=== PATIENT | female | born 1990 | race Caucasian/White ===

== ENCOUNTER → 2017-01-03 | Day surgery (SDC) | payer OTHER ==
[~2017-01-03] VITALS: Ht 160 cm; Wt 70.5 kg
[~2017-01-03] MED LIST: ADVIN50/60 INH; ALBU18002 INH; ALBU1AER9 INH; ASPI81TA28 PO; BUSP5TAB59 PO; CLR10 PO; CYM/30 PO; CYM/60 PO; DIPH25CA65 PO; DOCU-94 PO; FOLI1TAB7 PO; GABA-112 PO; LANS30CA12 PO; LEVE500T13 PO; LEVO1INJ13 PO; LIDOCAINE HCL 2% 2 ML VIAL (20MG/ML) ONE; LRS10 PO; MELATAB2 PO; METO25TA56 PO; MIDAZOLAM HCL 1 MG/ML 2ML VIAL ONE; MONT1TAB3 PO; NAPR-1169 PO; NICO21DI4 TD; NORE0.352 PO; NRN100 PO; ONDA4TAB46 PO; POLY335019 PO; POTA-331 PO; POTA10CA28 PO; PRLSR20 PO; PROM25TA9 PO; PROPOFOL IV EMULSION 10 MG/ML 20 ML VIAL IV ONE; QUET1TAB30 PO; QUET1TAB34 PO; SODIUM CHLORIDE 0.9% 500ML 500 ML IV ONE; SRQ25 PO; TAMS0.4C38 PO; THM50 PO; TIZA1CAP3 PO; VNTHFA/IN INH; ZNF/4 PO; ZNTUNK PO; compound cream
[2017-01-03 09:37] VITALS: Ht 160 cm; Wt 70.5 kg
[2017-01-03 10:23] LABS: PREG INTERNAL NEGATIVE QC NEG CLEAR BACKGROUND; PREG INTERNAL POSITIVE QC POS CONTROL LINE
--- NOTE | 2017-01-03 10:45 | Endo History and Physical ---
History & Physical Date of Service: Jan 03, 2017. Chief Complaint: ABDOMINAL PAIN, EPIGASTRIC PAIN Referring Physician: DR CHAMBERLAIN History of Present Illness Epigastric pain. Past Medical History Asthma, Anxiety, Seizure Disorder, Valve Replacement, CVA/TIA, Depression Past Surgical History Hx Cardiac Surgery: Yes Hx Internal Defibrillator: No Hx Pacemaker: No Hx Abdominal Surgery: No Hx of Implantable Prosthesis: No Hx Cancer Surgery: No Hx Thoracic Surgery: No Hx Orthopedic: No Hx Urinary Tract Surgery: No Family History None Social History Smoking Status: Current Every Day Smoker Hx Substance Use: Yes Hx Alcohol Use: Yes (DAILY- RUM APPOX "10 SHOTS" A DAY) Allergies Coded Allergies: No Known Allergies (Unverified , NONE, 01/03/17) Current Medications Reported Home Medications Medications Dose Route/Sig Max Daily Dose Days Date Category Dose Instructions [compound cream] 10/05/15 Reported Neurontin (Gabapentin) 100 Mg Cap 100 Mg PO TID 10/05/15 Reported Aspirin Ec (Aspirin) 81 Mg Tab 81 Mg PO DAILY 08/31/15 Reported Levothyroxine Sodium 100 Mcg Inj 100 Mcg PO DAILY 08/31/15 Reported Flomax (Tamsulosin Hcl) 0.4 Mg Cap 0.4 Mg PO DAILY 08/31/15 Reported Miralax (Polyethylene Glycol 3350) 1 Pow Pow 17 Gm PO DAILY 08/31/15 Reported Naprosyn (Naproxen) 500 Mg Tab 500 Mg PO BID 08/31/15 Reported Lopressor (Metoprolol Tartrate) 25 Mg Tab 25 Mg PO BID 08/31/15 Reported Buspirone Hcl 5 Mg Tab 5 Mg PO TID 03/05/14 Reported Proair Hfa (Albuterol Sulfate) 108 Mcg/ Aer 2 Puff INH TID 03/05/14 Reported Klor-Con M10 (Potassium Chloride Microencaps) 10 Meq Tab 10 Meq PO DAILY 03/05/14 Reported Quetiapine Fumarate 25 Mg Tab 25 Mg PO HS 03/05/14 Reported Advair Diskus 500/50 60 Dose (Fluticasone Prop/Salmeterol) 1 Ea Aerp 1 Puff INH BID 03/05/14 Reported Zofran (Ondansetron HCl) 4 Mg Tab 4 Mg PO Q8 PRN 03/05/14 Reported Singulair (Montelukast Sodium) 10 Mg Tab 10 Mg PO HS 03/05/14 Reported Tizanidine HCl (Tizanidine) 4 Mg Tab 4 Mg PO TID 03/05/14 Reported Seroquel (Quetiapine Fumarate) 100 Mg Tab 100 Mg PO UD 03/05/14 Reported Tizanidine Hcl 6 Mg Cap 6 Mg PO UD 03/05/14 Reported Baclofen 10 Mg Tab 10 Mg PO UD 03/05/14 Reported Cymbalta (Duloxetine HCl) 60 Mg Cap 60 Mg PO 03/05/14 Reported Prevacid (Lansoprazole) 30 Mg Capcr 30 Mg PO DAILY 03/05/14 Reported Zantac Unkown Dose (Ranitidine HCl) Tab 1 Tablet PO QPM 04/26/11 Reported TAKE IN THE AFTERNOON. Vital Signs Weight (Kilograms): 70.45 Height (Feet): 5 Height (Inches): 3 Date Time Temp Pulse Resp B/P (MAP) Pulse Ox O2 Delivery O2 Flow Rate FiO2 01/03/17 10:21 36.0 103 16 110/74 (86) 99 Room Air Physical Exam General Appearance: WD/WN, no apparent distress Respiratory/Chest: Auscultation: breath sounds normal, no wheezing Cardiovascular: Heart Auscultation: RRR, no murmurs Assessment and Plan EGD today
--- NOTE | 2017-01-03 11:13 | GI REPORT ---
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 Medicines: Propofol per Anesthesia Complications: No immediate complications. Estimated blood loss: None. Estimated Blood Loss: Estimated blood loss: none. Procedure: Pre-Anesthesia Assessment: - Prior to the procedure, a History and Physical was performed, and patient medications, allergies and sensitivities were reviewed. The patient's tolerance of previous anesthesia was reviewed. - ASA Grade Assessment: III - A patient with severe systemic disease. After obtaining informed consent, the endoscope was passed under direct vision. Throughout the procedure, the patient's blood pressure, pulse, and oxygen saturations were monitored continuously. The scope was introduced through the mouth, and advanced to the third part of the duodenum. Small bowel enteroscopy was deemed necessary. The upper GI endoscopy was accomplished with ease. The patient tolerated the procedure well. Findings: Esophagitis with no bleeding was found in the entire esophagus. Cells for cytology were obtained by brushing. The Z-line was regular and was found 36 cm from the incisors. A small hiatus hernia was present. The entire examined stomach was normal. Biopsies were taken with a cold forceps for Helicobacter pylori testing. The examined duodenum was normal. Biopsies for histology were taken with a cold forceps for evaluation of celiac disease. Impression: - Candidiasis esophagitis. Cells for cytology obtained. - Z-line regular, 36 cm from the incisors. - Small hiatus hernia. - Normal stomach. Biopsied. - Normal examined duodenum. Biopsied. Recommendation: - Await pathology results. - Diflucan (fluconazole) 100 mg PO daily for 3 weeks. - Discharge patient to home (with escort). Trevor Michael M.D. Trevor Michael MD 01/03/2017 11:12:58 AM This report has been signed electronically. Note Initiated On: 01/03/2017 10:36 AM I attest to the content of the Intraoperative Record and orders documented therein, exceptions below
--- NOTE | 2017-01-03 11:14 | Discharge Instructions ---
Endoscopy Patient Instructions Date / Procedure(s) Performed Jan 03, 2017. EGD Allergy Information Coded Allergies: No Known Allergies (Unverified , NONE, 01/03/17) Discharge Date / Findings Jan 03, 2017. Shana esophagitis, biopsies pending Medication Instructions Stopped Medication(s): aspirin 81mg last dose 01/02/17 Restart Stopped Medication(s): Restart all medications today Diflucan 100 mg for three weeks Provider Instructions Activity Restrictions - No exercising or heavy lifting for 24 hours. - Do not drink alcohol the day of the procedure. - Do not drive a car or operate machinery until the day after the procedure. - Do not make any important decisions or sign important papers in 24 hours after the procedure. Following Day: - Return to full activity which may include returning to work/school. Diet Start your diet with liquids and light foods (jello, soup, juice, toast). Then eat your usual diet if not nauseated. Treatment For Common After Affects For mild abdominal pain, bloating, or excessive gas: - Rest - Eat lightly - Lie on right side Follow-Up Information Follow-up with DR CHAMBERLAIN as scheduled Anesthesia Information What You Should Know You have had a procedure that required some medicine to reduce anxiety and discomfort. This treatment is called moderate sedation. After receiving the treatment, you may be sleepy, but you will be able to breathe on your own. The effects of the treatment may last for several hours. Follow these instructions along with Activity/Diet recommendations noted above: * Do NOT do anything where dizziness or clumsiness would be dangerous. * Rest quietly at home today, then you can be up and about tomorrow. * Have a responsible person stay with you the rest of today. * You may have had an I.V. today. If so, you may take the dressing off later today. Recommendations Call your doctor if: * Trouble breathing * Continuous vomiting for more than 24 hours * Temperature above 101 degrees * Severe abdominal pain or bloating * Pain not relieved by pain medicine ordered * There is increased drainage or redness from any incision * A large amount of rectal bleeding greater than 2-3 tablespoons. (If you had a polyp/s removed or have hemorrhoids, a small amount of blood - from the rectum is to be expected.) * You have any unanswered questions or concerns. IN THE EVENT OF A SERIOUS EMERGENCY, GO TO THE NEAREST EMERGENCY ROOM Your discharge instructions were prepared by provider Trevor Michael. Patient Instructions Signature Page Alla Verdin Patient (or Guardian) Signature/Date: I have read and understand the instructions given to me by my caregivers. Caregiver/RN/Doctor Signature/Date: The above-named patient and/or guardian has received patient instructions on this date. + Original Patient Signature Page (only) stays with chart. Please make copy for patient.
--- NOTE | 2017-01-03 11:38 | Anesthesiology Progress Note ---
Anesthesia Post Op Note Date & Time Jan 03, 2017 at 11:38 Vital Signs Pain Intensity: 0 Vital Signs Past 12 Hours Date Time Temp Pulse Resp B/P (MAP) Pulse Ox O2 Delivery O2 Flow Rate FiO2 01/03/17 11:22 100 20 115/80 (92) 99 Room Air 01/03/17 11:07 105 16 93/72 (79) 98 Room Air 01/03/17 10:21 36.0 103 16 110/74 (86) 99 Room Air Notes Mental Status: alert / awake / arousable, participated in evaluation Pt Amnestic to Procedure: Yes Nausea / Vomiting: adequately controlled Pain: adequately controlled Airway Patency, RR, SpO2: stable & adequate BP & HR: stable & adequate Hydration State: stable & adequate Anesthetic Complications: no major complications apparent
[2017-01-03 11:44] VITALS: BP 115/80; PULSE 96; O2SAT 99
== END | disposition home or self-care (01) ==
LOC: C.GI 09:18
PROVIDERS: ATTEND Internal Medicine Gastroenterology
DX: B37.81 Candidal esophagitis (principal); K29.80 Duodenitis without bleeding; K29.50 Unspecified chronic gastritis without bleeding; K44.9 Diaphragmatic hernia without obstruction or gangrene; G40.909 Epilepsy, unspecified, not intractable, without status epilepticus; J45.909 Unspecified asthma, uncomplicated; F41.9 Anxiety disorder, unspecified; F32.9 Major depressive disorder, single episode, unspecified; F17.210 Nicotine dependence, cigarettes, uncomplicated; Z86.73 Personal history of transient ischemic attack (TIA), and cerebral infarction without residual deficits; Z79.52 Long term (current) use of systemic steroids; Z79.899 Other long term (current) drug therapy

== ENCOUNTER 2017-01-08 14:30 | Inpatient (IN) | payer OTHER ==
[~2017-01-08] VITALS: Ht 160 cm; Wt 76.1 kg
[~2017-01-08 14:30] MED LIST changes: -ALBU18002 INH; -CLR10 PO; -CYM/30 PO; -DIPH25CA65 PO; -DOCU-94 PO; -FOLI1TAB7 PO; -LEVE500T13 PO; -LIDOCAINE HCL 2% 2 ML VIAL (20MG/ML) ONE; -MELATAB2 PO; -MIDAZOLAM HCL 1 MG/ML 2ML VIAL ONE; -NICO21DI4 TD; -NORE0.352 PO; -NRN100 PO; -POTA10CA28 PO; -PRLSR20 PO; -PROM25TA9 PO; -PROPOFOL IV EMULSION 10 MG/ML 20 ML VIAL IV ONE; -QUET1TAB30 PO; -SODIUM CHLORIDE 0.9% 500ML 500 ML IV ONE; -THM50 PO; -VNTHFA/IN INH
[2017-01-08] MEDS ORDERED: SODIUM CHLORIDE 0.9% 1000ML 1,000 ML IV STA ×2 (16:12→16:33)
--- NOTE | 2017-01-08 16:33 | EMERGENCY ROOM VISIT NOTE ---
History Report prepared by Deandre: Magdaleno Land Under the Supervision of: Dr. Faustino Philippe M.D. First contact with patient: 14:51 Chief Complaint: FALL Stated Complaint: HAD STROKE 3YR AGO,BEEN FALLING History of Present Illness The patient is a 26 year old white female with a past medical history of asthma , anxiety, seizure disorder, heart valve infection, valve replacement, CVA/TIA that affected the right side, depression, and recent endoscopy who presents to the ED with a cc of multiple falls beginning a few months ago. Positive left sided weakness, numbness, and pain, left hand numbness, slight cough, alcohol, and tobacco use. Negative vomiting, head pain, congestion. The patient has not been eating well or having BMs. She had an endoscopy a week and a half ago, and the symptoms have gotten worse since then. She takes seizure medications, though she does not take Coumadin, Eliquis, or Xarelto. Source of History: patient Onset: a few months ago Position: other (global) Quality: other (falls) Associated Symptoms: + weakness, + numbness, No headache Review of Systems See HPI for pertinent positives and negatives. A total of ten systems were reviewed and were otherwise negative. Past Medical & Surgical Medical Problems: (1) Anxiety (2) Asthma Family History Unknown Social History Smoking Status: Current Every Day Smoker Alcohol Use: occasionally Drug Use: cocaine, heroin, marijuana Marital Status: single Housing Status: lives with roommate Occupation Status: unemployed Current/Historical Medications Scheduled Albuterol Hfa (Ventolin Hfa), 2-4 PUFFS INH Q6H Aspirin (Aspirin Ec), 81 MG PO DAILY Baclofen (Baclofen), 10 MG PO UD Buspirone Hcl (Buspirone Hcl), 15 MG PO TID Duloxetine HCl (Cymbalta), 60 MG PO HS Duloxetine HCl (Cymbalta), 1 CAP PO QAM Fluticasone Prop/Salmeterol (Advair Diskus 500/50 60 Dose), 1 PUFF INH BID Folic Acid (Folvite), 1 MG PO DAILY Levetiracetam (Keppra), 500 MG PO BID Levothyroxine Sodium (Levothyroxine Sodium), 100 MCG PO DAILY Loratadine (Claritin), 10 MG PO DAILY Melatonin (Melatonin Maximum Strengt), 1 TAB PO HS Metoprolol Tartrate (Lopressor) (Lopressor), 25 MG PO BID Montelukast Sodium (Singulair), 10 MG PO HS Naproxen (Naprosyn), 500 MG PO BID Norethindrone (Contraceptive) (Addie-Be), 1 TAB PO DAILY Omeprazole (Prilosec), 20 MG PO DAILY Polyethylene Glycol 3350 (Miralax), 17 GM PO DAILY Potassium Chloride (Micro-K Ext Rel), 20 MEQ PO BID Quetiapine Fumarate (Seroquel), 25 MG PO HS Tamsulosin Hcl (Flomax), 0.4 MG PO DAILY Scheduled PRN Albuterol Sulfate (Proair Respiclick), 2 PUFFS INH Q6H PRN for Shortness of Breath Diphenhydramine Hcl (Benadryl Allergy), 1 CAP PO HS PRN for Itching Docusate Sodium (Colace), 1 CAP PO BID PRN for Constipation Ondansetron Hcl (Zofran), 4 MG PO Q8 PRN for Nausea Promethazine Hcl (Phenergan), 25 MG PO Q4H PRN for Nausea Miscellaneous Medications [compound cream] Allergies Coded Allergies: No Known Allergies (Unverified , NONE, 01/08/17) Physical Exam Vital Signs Date Time Temp Pulse Resp B/P (MAP) Pulse Ox O2 Delivery O2 Flow Rate FiO2 01/08/17 21:23 107 01/08/17 21:03 104/75 01/08/17 21:00 106 17 98 01/08/17 20:00 109 99 01/08/17 19:30 106 100 01/08/17 18:30 105 99 01/08/17 18:23 108 16 100/66 98 Room Air 01/08/17 16:46 108 01/08/17 14:38 36.7 127 18 99/70 98 Room Air Physical Exam GENERAL: Awake, alert, well-appearing, NAD HENT: Exotropic left eye. Normocephalic, atraumatic. EYES: Normal conjunctiva. Sclera non-icteric. NECK: Supple. No nuchal rigidity. FROM. RESPIRATORY: CTAB, no rhonchi, wheezing, crackles CARDIAC: RRR, no MRG ABDOMEN: Soft, NTND, BS+ MSK: Ecchymosis over the anterior and lateral aspect of the left knee. NVI distally. No chest wall TTP, no LE edema NEURO: PERRLA and EOMI. Exotropic left eye. Mild right sided deficits of the face and RUE. 4/5 strength in the RLE. 5/5 strength in the LUE and LLE. Good finger to nose. No pronator drift. No sensory deficit. GCS 15, CN 2-12 intact, moves all 4s on command SKIN: Pallor. No rash or jaundice noted. Medical Decision & Procedures ER Provider Diagnostic Interpretation: Radiology results as stated below per my review and radiologist interpretation: LEFT KNEE 3 VIEWS HISTORY: Left knee pain, bruising COMPARISON: None. FINDINGS: There is no fracture or dislocation. Soft tissues are unremarkable. No radiopaque foreign bodies. No knee effusion. IMPRESSION: No fractures. Electronically signed by: Jarocho Mcguire M.D. 01/08/2017 4:40 PM Dictated Date/Time: 01/08/2017 4:[address] NONCONTRAST CT DOSE: 537.48 mGy.cm HISTORY: prior septic emboli w/ right-sided sided deficits, recent falls TECHNIQUE: Multiaxial CT images of the head were performed without the use of intravenous contrast. Automated exposure control was utilized for this study. A dose lowering technique was utilized adhering to the principles of ALARA. Comparison: Head CT 06/09/2014. Findings: The paranasal sinuses and mastoid air cells are clear. The calvarium and skull base are intact. Subtle malacia within the left MCA territory consistent with an old infarct. This is progressed compared to the prior study. However, there is no acute infarct. No mass, hematoma, or midline shift. No change in the hyperdense left MCA consistent with old thrombus. Impression: Old left MCA territory infarct is again noted. No acute intracranial abnormality. Electronically signed by: Jarocho Mcguire M.D. 01/08/2017 5:51 PM Dictated Date/Time: 01/08/2017 5:46 PM CHEST ONE VIEW PORTABLE CLINICAL HISTORY: pain dyspnea COMPARISON STUDY: 03/05/2014 FINDINGS: Interval median sternotomy. No evidence for cardiac enlargement. Slight interstitial prominence left base. Right lung is clear. No evidence pneumothorax. IMPRESSION: Slight interstitial prominence left base, possibly inflammatory.. Otherwise negative study post median sternotomy. The above report was generated using voice recognition software. It may contain grammatical, syntax or spelling errors. Electronically signed by: Dino Lopez M.D. 01/08/2017 4:43 PM Dictated Date/Time: 01/08/2017 4:42 PM Laboratory Results 01/08/17 15:25 Red Blood Count 3.74, Mean Corpuscular Volume 103.2, Mean Corpuscular Hemoglobin 34.0, Mean Corpuscular Hemoglobin Concent 32.9, Mean Platelet Volume 9.6, Neutrophils (%) (Auto) 62.8, Lymphocytes (%) (Auto) 22.6, Monocytes (%) ( Auto) 11.0, Eosinophils (%) (Auto) 2.1, Basophils (%) (Auto) 0.5, Neutrophils # (Auto) 3.61, Lymphocytes # (Auto) 1.30, Monocytes # (Auto) 0.63, Eosinophils # ( Auto) 0.12, Basophils # (Auto) 0.03 01/08/17 15:25 Test 01/08/17 15:25 01/08/17 17:08 01/08/17 19:11 01/08/17 19:30 White Blood Count 5.75 K/uL (4.8-10.8) Red Blood Count 3.74 M/uL (4.2-5.4) Hemoglobin 12.7 g/dL (12.0-16.0) Hematocrit 38.6 % (37-47) Mean Corpuscular Volume 103.2 fL (80-100) Mean Corpuscular Hemoglobin 34.0 pg (25-34) Mean Corpuscular Hemoglobin Concent 32.9 g/dl (32-36) Platelet Count 281 K/uL (130-400) Mean Platelet Volume 9.6 fL (7.4-10.4) Neutrophils (%) (Auto) 62.8 % Lymphocytes (%) (Auto) 22.6 % Monocytes (%) (Auto) 11.0 % Eosinophils (%) (Auto) 2.1 % Basophils (%) (Auto) 0.5 % Neutrophils # (Auto) 3.61 K/uL (1.4-6.5) Lymphocytes # (Auto) 1.30 K/uL (1.2-3.4) Monocytes # (Auto) 0.63 K/uL (0.11-0.59) Eosinophils # (Auto) 0.12 K/uL (0-0.5) Basophils # (Auto) 0.03 K/uL (0-0.2) RDW Standard Deviation 55.3 fL (36.4-46.3) RDW Coefficient of Variation 14.6 % (11.5-14.5) Immature Granulocyte % (Auto) 1.0 % Immature Granulocyte # (Auto) 0.06 K/uL (0.00-0.02) Prothrombin Time 10.6 SECONDS (9.0-12.0) Prothromb Time International Ratio 1.0 (0.9-1.1) Activated Partial Thromboplast Time 24.8 SECONDS (21.0-31.0) Partial Thromboplastin Ratio 1.0 Anion Gap 9.0 mmol/L (3-11) Estimated GFR () 138.0 Estimated GFR (Non- 119.0 BUN/Creatinine Ratio 10.7 (10-20) Calcium Level 9.1 mg/dl (8.5-10.1) Phosphorus Level 4.0 mg/dl (2.5-4.9) Magnesium Level 1.7 mg/dl (1.8-2.4) Venous Blood pH 7.43 (7.36-7.41) Venous Blood Partial Pressure CO2 36 mmHg (38.0-50.0) Venous Blood Partial Pressure O2 27 mmHg Venous Blood HCO3 24 mmol/L Venous Blood Oxygen Saturation < 60.0 % Venous Blood Base Excess -0.4 mEq/L Bedside Lactic Acid Venous 2.08 mmol/L (0.90-1.70) Urine Color DK YELLOW Urine Appearance CLEAR (CLEAR) Urine pH 5.0 (4.5-7.5) Urine Specific [place] 1.019 (1.000-1.030) Urine Protein NEG (NEG) Urine Glucose (UA) NEG (NEG) Urine Ketones NEG (NEG) Urine Occult Blood NEG (NEG) Urine Nitrite NEG (NEG) Urine Bilirubin NEG (NEG) Urine Urobilinogen NEG (NEG) Urine Leukocyte Esterase NEG (NEG) Laboratory results reviewed by me Medications Administered Medications (Trade) Dose Ordered Sig/Taylor Route Start Time Stop Time Status Last Admin Dose Admin Sodium Chloride 1,000 ml @ 999 mls/hr Q1H1M STAT IV 01/08/17 16:12 01/08/17 17:12 DC 01/08/17 17:00 999 MLS/HR Sodium Chloride 1,000 ml @ 999 mls/hr Q1H1M STAT IV 01/08/17 16:33 01/08/17 17:33 DC 01/08/17 18:00 999 MLS/HR Magnesium Oxide (Mag-Ox Tab) 800 mg ONE STAT PO 01/08/17 18:03 01/08/17 18:04 DC 01/08/17 18:29 800 MG ECG Indication: other (fall) Rate (beats per minute): 113 Rhythm: sinus tachycardia Findings: other (Normal intervals, T wave flattening in the anterior leads. Motion artifacts.) ED Course 1451: The patient was evaluated in room C12. A complete history and physical exam was performed. Medical Decision The patient is a 26 year old white female with a past medical history of asthma , anxiety, seizure disorder, heart valve infection, valve replacement, CVA/TIA that affected the right side, depression, and recent endoscopy who presents to the ED with a cc of multiple falls beginning a few months ago. Positive left sided weakness, numbness, and pain, left hand numbness, slight cough, alcohol, and tobacco use. Negative vomiting, head pain, congestion. Differential Diagnoses include: deconditioning, stroke, and intoxication. Patient was evaluated with laboratory as well as CT scan and EKG. Patient's EKG just showed sinus tachycardia. Patient was offered fluids. Patient's CT brain showed old left MCA infarct. Patient's laboratory fairly unremarkable. UA was negative chest x-ray was questionable inflammatory likely atelectatic. Patient's IV was in her only working extremity because her left upper extremity. Encouraged patient to take by mouth in addition to straighten her arm. Given the fluids had been running for many hours there were not running very well. As such the patient has had mild persistent tachycardia and this is while she's been supine. As a concern that she is still dehydrated and that if she was sent home she would have worsening tachycardia while trying to perform some of her ADLs. I spoke with the inpatient team. The patient would benefit from further management and likely observation period. Patient was admitted. Medication Reconcilliation Current Medication List: was personally reviewed by me Blood Pressure Screening Patient's blood pressure: Normal blood pressure Impression Primary Impression: Sinus tachycardia Additional Impressions: Lactic acidosis Dehydration Encounter for smoking cessation counseling Scribe Attestation The scribe's documentation has been prepared under my direction and personally reviewed by me in its entirety. I confirm that the note above accurately reflects all work, treatment, procedures, and medical decision making performed by me. Departure Information Dispostion Being Evaluated By Hospitalist Referrals Manuel Saenz M.D. (PCP) Patient Instructions [facility] Problem Qualifiers
[2017-01-08] MEDS ORDERED: FOLI1TAB7 PO (16:36)
[2017-01-08] MEDS ORDERED: VNTHFA/IN INH (16:36)
[2017-01-08] MEDS ORDERED: CYM/30 PO (16:36)
[2017-01-08] MEDS ORDERED: NORE0.352 PO (16:36)
[2017-01-08] MEDS ORDERED: DIPH25CA65 PO (16:36)
[2017-01-08] MEDS ORDERED: CLR10 PO (16:36)
[2017-01-08] MEDS ORDERED: MELATAB2 PO (16:36)
[2017-01-08] MEDS ORDERED: PRLSR20 PO (16:36)
[2017-01-08] MEDS ORDERED: DOCU-94 PO (16:36)
[2017-01-08] MEDS ORDERED: PROM25TA9 PO (16:36)
[2017-01-08] MEDS ORDERED: ALBU18002 INH (16:36)
[2017-01-08] MEDS ORDERED: LEVE500T13 PO (16:36)
[2017-01-08] MEDS ORDERED: POTA10CA28 PO (16:36)
[2017-01-08] MEDS ORDERED: QUET1TAB30 PO (16:36)
[2017-01-08 16:39] LABS: BASO % 0.5 %; BASO ABS # 0.03 K/uL (0-0.2); COMPLETE YES; EOS % 2.1 %; HEMATOCRIT 38.6 % (37-47); LYMPH % 22.6 %; MEAN CELL VOLUME 103.2 fL (80-100); MEAN CORPUSCULAR HGB CONC 32.9 g/dl (32-36); MEAN PLATELET VOLUME 9.6 fL (7.4-10.4); NEUT % 62.8 %; PLATELET COUNT 281 K/uL (130-400); RED BLOOD COUNT 3.74 M/uL (4.2-5.4); WHITE BLOOD COUNT 5.75 K/uL (4.8-10.8)
[2017-01-08 16:41] LABS: BLOOD UREA NITROGEN 7 mg/dl (7-18); BUN/CREATININE RATIO 10.7 (10-20); CALCIUM 9.1 mg/dl (8.5-10.1); CARBON DIOXIDE 23 mmol/L (21-32); CHLORIDE 110 mmol/L (98-107); CREATININE 0.68 mg/dl (0.60-1.20); GLUCOSE 99 mg/dl (70-99); MAGNESIUM 1.7 mg/dl (1.8-2.4); POTASSIUM 3.7 mmol/L (3.5-5.1); SODIUM 142 mmol/L (136-145)
--- NOTE | 2017-01-08 16:42 | DIAGNOSTIC IMAGING REPORT ---
LEFT KNEE 3 VIEWS HISTORY: Left knee pain, bruising COMPARISON: None. FINDINGS: There is no fracture or dislocation. Soft tissues are unremarkable. No radiopaque foreign bodies. No knee effusion. IMPRESSION: No fractures. Electronically signed by: Jarocho Mcguire M.D. 01/08/2017 4:40 PM Dictated Date/Time: 01/08/2017 4:39 PM
[2017-01-08 16:43] LABS: PROTHROMBIN TIME (PATIENT) 10.6 SECONDS (9.0-12.0)
--- NOTE | 2017-01-08 16:45 | DIAGNOSTIC IMAGING REPORT ---
CHEST ONE VIEW PORTABLE CLINICAL HISTORY: pain dyspnea COMPARISON STUDY: 03/05/2014 FINDINGS: Interval median sternotomy. No evidence for cardiac enlargement. Slight interstitial prominence left base. Right lung is clear. No evidence pneumothorax. IMPRESSION: Slight interstitial prominence left base, possibly inflammatory.. Otherwise negative study post median sternotomy. The above report was generated using voice recognition software. It may contain grammatical, syntax or spelling errors. Electronically signed by: Dino Lopez M.D. 01/08/2017 4:43 PM Dictated Date/Time: 01/08/2017 4:42 PM
[2017-01-08 17:29] LABS: VEN BLOOD GAS BASE EXCESS -0.4 mEq/L; VENOUS BLOOD GAS PCO2 36 mmHg (38.0-50.0); VENOUS BLOOD GAS PO2 27 mmHg
[2017-01-08 17:31] LABS: VEN BLD GAS O2 SATURATION < 60.0 %
--- NOTE | 2017-01-08 17:53 | DIAGNOSTIC IMAGING REPORT ---
HEAD CT NONCONTRAST CT DOSE: 537.48 mGy.cm HISTORY: prior septic emboli w/ right-sided sided deficits, recent falls TECHNIQUE: Multiaxial CT images of the head were performed without the use of intravenous contrast. Automated exposure control was utilized for this study. A dose lowering technique was utilized adhering to the principles of ALARA. Comparison: Head CT 06/09/2014. Findings: The paranasal sinuses and mastoid air cells are clear. The calvarium and skull base are intact. Subtle malacia within the left MCA territory consistent with an old infarct. This is progressed compared to the prior study. However, there is no acute infarct. No mass, hematoma, or midline shift. No change in the hyperdense left MCA consistent with old thrombus. Impression: Old left MCA territory infarct is again noted. No acute intracranial abnormality. Electronically signed by: Jarocho Mcguire M.D. 01/08/2017 5:51 PM Dictated Date/Time: 01/08/2017 5:46 PM
[2017-01-08] MEDS ORDERED: MAGNESIUM OXIDE 400 MG TAB PO STA (18:03)
[2017-01-08 19:39] LABS: URINE APPEARANCE CLEAR (CLEAR); URINE BILIRUBIN NEG (NEG); URINE COLOR DK YELLOW; URINE NITRITE NEG (NEG); URINE SPECIFIC GRAVITY 1.019 (1.000-1.030); UROBILINOGEN NEG (NEG)
[2017-01-08 19:43] LABS: MANUAL MICROSCOPIC REQUIRED? NO; REVIEW REQ? NO
[2017-01-08 23:39] LABS: BENZODIAZEPINE, URINE NEG (NEG); COCAINE,URINE NEG (NEG); PHENCYCLIDINE, URINE NEG (NEG)
[2017-01-08] MEDS ORDERED: IV FLUIDS COMPLETED PRN (23:45)
[2017-01-09] VITALS (8 sets, daily range): BP systolic 105–113; BP diastolic 69–81; PULSE 64–119; TEMP 36.3–36.9; O2SAT 91–99; Ht 160 cm; Wt 76.1 kg
[2017-01-09] MEDS ORDERED: METOPROLOL TARTRATE 50 MG TAB PO ONE (00:14)
[2017-01-09] MEDS ORDERED: POTASSIUM CHLORIDE 10 MEQ TABCR PO STA (00:14)
[2017-01-09] MEDS ORDERED: DOCUSATE SODIUM 100 MG CAP PO PRN (00:15)
[2017-01-09] MEDS ORDERED: ONDANSETRON INJ 2 MG/ML 2 ML VIAL IV PRN (00:15)
[2017-01-09] MEDS ORDERED: LORAZEPAM 2 MG/ML 1 ML VIAL IV PRN (00:15)
[2017-01-09] MEDS ORDERED: PHARMACIST DISCHARGE MED REC CONSULT PRN (00:15)
[2017-01-09] MEDS ORDERED: GABAPENTIN 600 MG TAB PO SCH (00:15)
[2017-01-09 00:18] LABS: ALKALINE PHOSPHATASE 135 U/L (45-117); ALT/SGPT 42 U/L (12-78); AST/SGOT 57 U/L (15-37)
[2017-01-09] MEDS ORDERED: MAGNESIUM SULFATE 1GM / D5W 1 GM IV STA (00:50)
[2017-01-09] MEDS ORDERED: MULTI-VITAMIN INFUSION INJ 10 ML, THIAMINE HCL INJ 100 MG, FoLIC ACID INJ 1 MG in SODIU... IV ONE (01:30)
[2017-01-09 01:57] LABS: LYME DISEASE AB IGG NEG (NEG); LYME DISEASE AB IGM NEG (NEG)
[2017-01-09] MEDS ORDERED: PNEUMOCOCCAL POLYSACCHARIDES 25 MCG/0.5 ML VIAL/SYR IM. ONE (02:45)
[2017-01-09] MEDS ORDERED: PNEUMOCOCCAL ADMINISTRATION CHARGE ONE (02:45)
[2017-01-09 04:04] LABS: PREG INTERNAL NEGATIVE QC NEG CLEAR BACKGROUND; PREG INTERNAL POSITIVE QC POS CONTROL LINE
[2017-01-09] MEDS: GABAPENTIN 1200MG LOADING DOSE PO SCH (04:49)
[2017-01-09] MEDS ORDERED: IV FLUIDS COMPLETED PRN (05:30)
--- NOTE | 2017-01-09 06:27 | DIAGNOSTIC IMAGING REPORT ---
ULTRASOUND VENOUS DOPPLER LWR EXT BILA CLINICAL HISTORY: Suspected pulmonary embolism. COMPARISON STUDY: No previous studies for comparison. FINDINGS: Real-time and color flow Doppler imaging were performed. Flow was seen within the femoral, popliteal and calf veins with no intraluminal thrombus demonstrated. The saphenous vein is patent. IMPRESSION: No evidence of lower extremity DVT. Electronically signed by: Ron Donnelly M.D. 01/09/2017 6:26 AM Dictated Date/Time: 01/09/2017 6:25 AM
--- NOTE | 2017-01-09 08:01 | HISTORY & PHYSICAL EXAMINATION ---
DATE OF ADMISSION: 01/08/2017 PRIMARY CARE DOCTOR: Dr. Alexis. CHIEF COMPLAINT: Left-sided numbness. History obtained from patient, patient's friend, records, limited history obtained secondary to aphasia. HISTORY OF PRESENT ILLNESS: History obtained from the patient, patient's male friend, and records. History somewhat difficult obtaining patient secondary to chronic aphasia. 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 Patient noted to have a right hemiparesis at that time. Patient transferred to [facility]. Confined for about a month. 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 Subsequent discharge to [facility] then discharged home. Last month as per her partner the patient noted to be falling more than usual, complaining of numbness on the left side. Chest pain chronic from valve surgery. Some shortness of breath. No unusual cough symptoms. No headache. Seen at PCP's office. Patient directed to the Emergency Room. MEDICAL HISTORY: As above. SURGERIES: aortic valve replacement. HOME MEDICATIONS: Include Seroquel, Flomax, Ventolin, aspirin, ProAir, buspirone, baclofen, Benadryl, Colace, Cymbalta, Advair Diskus, Folvite, Keppra, levothyroxine, Claritin, Singulair, Lopressor, naproxen, Prilosec, OCP, Zofran, MiraLax, Micro-K, Phenergan. ALLERGIES: No known drug allergies. FAMILY HISTORY: Could not be obtained. PERSONAL AND SOCIAL HISTORY: Still smoking 1 to 1.5 packs daily. Daily alcohol intake as per friend. Lives alone with caregivers from time to time; close friend lives nearby REVIEW OF SYSTEMS: Could not be reliably obtained. PHYSICAL EXAMINATION: VITAL SIGNS: Blood pressure noted to be 100/66, pulse rate 108, RR 16, temperature 36.7, sats 98 on room air. SKIN: Normal color. GENERAL EXAMINATION: Noted to be coherent, aphasic. Obese. HEENT ; pink palpebral conjunctivae, dry mucosa, chronic right facial droop NECK: Short neck. LUNGS: Decreased effort. HEART: Tachycardic, systolic murmur. ABDOMEN: Some distension, nontender. EXTREMITIES: No edema, no tenderness. NEUROLOGIC: No gross focality except for chronic facial asymmetry right, MMTS R < L (chronic) LABORATORY DATA: Hemoglobin was noted to be 12.7, white cell count 5.7, platelets 281. Sodium noted to be 145, chloride 110, CO2 23, glucose was noted to be 99. trop 0, D-dimer was abnormal. CT of the head, old left MCA infarct. Knee x-ray no fracture. Chest x-ray, slight interstitial prominence left base. EKG as per my interpretation, rate 115, sinus tachycardia, some T-wave inversion and flattening in the anteroseptal leads . ASSESSMENT AND PLAN: 1. 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 Hypertension, stable 3. ongoing tobacco/alcohol abuse 4. Fibromyalgia as per records, 5. chest pain, shortness of breath rule out pulmonary embolism. 6. Seizure disorder stable on Keppra. Observation PCU, neuro checks. MRI of the brain. Neuropathy workup. TTE chest pain PE workup : VQ scan. Lower extremity Dopplers (Unable to obtain IV access for CT chest PE study as per RN) for PE workup. Further management pending workup results. DT precautions Nicotine patch PT OT eval DVT prophylaxis with Lovenox subQ. Full code Patient's friend requesting updates from providers. Mr. Davis Dean at [phone]. MTDD
[2017-01-09 08:11] LABS: BASO % 0.5 %; BASO ABS # 0.02 K/uL (0-0.2); COMPLETE YES; EOS % 3.2 %; HEMATOCRIT 34.6 % (37-47); IG% 0.9 %; LYMPH % 40.5 %; LYMPH ABS # 1.78 K/uL (1.2-3.4); MEAN CELL VOLUME 104.5 fL (80-100); MEAN CORPUSCULAR HEMOGLOBIN 34.1 pg (25-34); MEAN CORPUSCULAR HGB CONC 32.7 g/dl (32-36); MEAN PLATELET VOLUME 9.2 fL (7.4-10.4); MONO % 7.5 %; NEUT % 47.4 %; PLATELET COUNT 233 K/uL (130-400); RED BLOOD COUNT 3.31 M/uL (4.2-5.4); WHITE BLOOD COUNT 4.39 K/uL (4.8-10.8)
[2017-01-09 08:33] LABS: BLOOD UREA NITROGEN 7 mg/dl (7-18); CALCIUM 8.2 mg/dl (8.5-10.1); CARBON DIOXIDE 23 mmol/L (21-32); CHLORIDE 113 mmol/L (98-107); CREATININE 0.47 mg/dl (0.60-1.20); GLUCOSE 73 mg/dl (70-99); MAGNESIUM 2.2 mg/dl (1.8-2.4); POTASSIUM 3.5 mmol/L (3.5-5.1); SODIUM 142 mmol/L (136-145)
[2017-01-09] MEDS: ENOXAPARIN 40 MG/0.4 ML SYR SC SCH (08:57)
[2017-01-09] MEDS: FLUTICASONE/SALMETEROL (ADVAIR) 500/50 INH 14 PUFF INH SCH ×2 (08:58→21:15)
[2017-01-09] MEDS: LEVETIRACETAM 500 MG TAB PO SCH ×2 (08:58→21:18)
[2017-01-09] MEDS: POLYETHYLENE (MIRALAX) 17 GM PACK PO SCH (08:58)
[2017-01-09] MEDS: TAMSULOSIN HCL 0.4 MG CAP PO SCH (08:58)
[2017-01-09] MEDS: NICOTINE 21 MG/24 HR TDSY TD SCH ×2 (08:59→15:56)
[2017-01-09] MEDS: DULOXETINE (CYMBALTA) 30 MG CAP PO SCH (08:59)
[2017-01-09] MEDS: NAPROXEN 250 MG TAB PO SCH ×2 (09:00→21:19)
[2017-01-09] MEDS: LEVOTHYROXINE 100 MCG TAB PO SCH (09:00)
[2017-01-09] MEDS: PANTOprazole SOD 40 MG TAB PO SCH (09:01)
[2017-01-09] MEDS: METOPROLOL TARTRATE 25 MG TAB PO SCH ×2 (09:01→21:19)
[2017-01-09] MEDS: LORATADINE 10 MG TAB PO SCH (09:01)
[2017-01-09] MEDS: ASPIRIN 81 MG ECTAB PO SCH (09:01)
[2017-01-09] MEDS: GABAPENTIN 600MG Q6H DOSE PO SCH ×2 (10:43→15:57)
[2017-01-09] MEDS ORDERED: PERFLUTREN LIPID MICROSPHERE (DEFINITY) IV ONE (12:10)
--- NOTE | 2017-01-09 14:10 | ECHOCARDIOGRAM REPORT ---
*NOTICE TO RECEIVING REPUBLICAN AGENCY This information is strictly Confidential and protected under [place] law. [place] law prohibits you from making any further disclosure of this information unless further disclosure is expressly permitted by the written consent of the person to whom it pertains or is authorized by law. A general authorization for the release of medical or other information is not sufficient for this purpose. Hospital accepts no responsibility if the information is made available to any other person, INCLUDING THE PATIENT. Interpretation Summary * Name: KRYSTLE ELLIS Study Date: 01/09/2017 11:47 AM BP: 112/81 mmHg * Patient Location: [facility]\S\[id number]\S\1 HR: 106 * : 1990 (M/d/yyyy) Gender: Female Height: 63 in * Age: 26 yrs Ethnicity: CA Weight: 169 lb * Ordering Physician: Tylor Bach * Performed By: Arcelia Sharma * * Reason For Study: CHEST PAIN, SOB * BSA: 1.8 m2 * The study was technically adequate. * -- Conclusions -- * Sinus tachycardia is present on the echocardiogram. * No regional wall motion abnormalities noted. * The left ventricle is hyperdynamic. * Ejection Fraction = >70 %. * The right ventricle is normal in size and function. * There is a bioprosthetic aortic valve. * There is no significant aortic regurgitation. * Aortic stenosis is absent. * There is no evidence of valvular vegetation within the limits of this imaging modality. If clinical suspicion for valvular vegetation exists, consider BENNY. Procedure Details * A complete two-dimensional transthoracic echocardiogram was performed (2D, M-mode, Doppler and color flow Doppler). * The study was technically difficult. * There were technical limitations due to patient'sinability to cooperate * A contrast injection of Definity was performed to improve assessment of LV function. * Contrast was injected into an intravenous site in the left arm. * One vial of Definity ultrasound contrast was diluted in normal saline to a total volume of 10 ml. A total of '2' ml of solution was administered during imaging. * Lot # [id number] of Definity utilized for procedure. * Expiration date 01/10. Left Ventricle * The left ventricle is normal in size. * There is normal left ventricular wall thickness. * Ejection Fraction = >70 %. * The left ventricle is hyperdynamic. * The left ventricular wall motion is normal. * No regional wall motion abnormalities noted. Right Ventricle * The right ventricle is normal in size and function. Atria * The left atrial size is normal. * Right atrial size is normal. * There is no evidence of atrial septal defect, but resolution does not allow assessment for a patent foramen ovale. Mitral Valve * The mitral valve is normal. * There is no mitral valve stenosis. * Significant mitral regurgitation is absent. Tricuspid Valve * The tricuspid valve is normal. * There is no tricuspid stenosis. * Significant tricuspid regurgitation is absent. * Doppler findings do not suggest pulmonary hypertension. Aortic Valve * Aortic stenosis is absent. * There is no significant aortic regurgitation. * There is a bioprosthetic aortic valve. Pulmonic Valve * The pulmonary valve is not well seen, but the Doppler examination is normal without significant regurgitation or stenosis. Great Vessels * The aortic root and proximal ascending aorta are normal sized. Pericardium/Pleural * There is no pericardial effusion. Great Vessels * Normal inferior vena cava diameter and respiratory variation suggests normal central venous pressure. MMode 2D Measurements and Calculations IVSd 0.77 cm IVSs 0.89 cm LVIDd 4.1 cm LVIDs 2.5 cm LVPWd 0.82 cm LVPWs 1.4 cm IVS/LVPW 0.93 FS 38.9 % EDV(Teich) 73.5 ml ESV(Teich) 22.2 ml EF(Teich) 69.7 % EDV(cubed) 68.0 ml ESV(cubed) 15.6 ml EF(cubed) 77.1 % % IVS thick 15.3 % % LVPW thick 69.2 % LV mass(C)d 96.0 grams LV mass(C)dI 53.3 grams/m\S\2 LV mass(C)s 78.3 grams LV mass(C)sI 43.5 grams/m\S\2 SV(Teich) 51.2 ml SI(Teich) 28.5 ml/m\S\2 SV(cubed) 52.5 ml SI(cubed) 29.2 ml/m\S\2 asc Aorta Diam 3.0 cm LVOT diam 1.6 cm LVOT area 2.0 cm\S\2 LVAd ap4 20.5 cm\S\2 LVLd ap4 7.4 cm EDV(MOD-sp4) 47.8 ml EDV(sp4-el) 48.0 ml LVAs ap4 9.9 cm\S\2 LVLs ap4 6.1 cm ESV(MOD-sp4) 13.2 ml ESV(sp4-el) 13.6 ml EF(MOD-sp4) 72.4 % EF(sp4-el) 71.6 % LVAd ap2 24.2 cm\S\2 LVLd ap2 7.4 cm EDV(MOD-sp2) 64.5 ml EDV(sp2-el) 66.9 ml LVAs ap2 11.6 cm\S\2 LVLs ap2 6.2 cm ESV(MOD-sp2) 17.5 ml ESV(sp2-el) 18.3 ml EF(MOD-sp2) 72.9 % EF(sp2-el) 72.6 % LVLd %diff 0.19 % EDV(MOD-bp) 55.7 ml LVLs %diff 2.5 % ESV(MOD-bp) 15.1 ml EF(MOD-bp) 72.9 % SV(MOD-sp4) 34.6 ml SI(MOD-sp4) 19.2 ml/m\S\2 SV(MOD-sp2) 47.0 ml SI(MOD-sp2) 26.1 ml/m\S\2 SV(MOD-bp) 40.6 ml SI(MOD-bp) 22.6 ml/m\S\2 SV(sp4-el) 34.4 ml SI(sp4-el) 19.1 ml/m\S\2 SV(sp2-el) 48.6 ml SI(sp2-el) 27.0 ml/m\S\2 Doppler Measurements and Calculations MV E max wendi 111.0 cm/sec MV dec time 0.15 sec Ao V2 max 272.7 cm/sec Ao max PG 29.8 mmHg Ao max PG (full) 27.2 mmHg Ao V2 mean 187.9 cm/sec Ao mean PG 16.0 mmHg Ao V2 VTI 53.1 cm ALYSA(V,A) 0.60 cm\S\2 ALYSA(V,D) 0.60 cm\S\2 LV V1 max PG 2.6 mmHg LV V1 max 79.9 cm/sec PA V2 max 75.5 cm/sec PA max PG 2.3 mmHg
--- NOTE | 2017-01-09 15:10 | DIAGNOSTIC IMAGING REPORT ---
LUNG PERFUSION IMAGING CLINICAL HISTORY: cp, sob dyspnea TECHNIQUE: Perfusion imaging only as the patient declined to ventilate. Perfusion is performed following administration of 5.2 mCi technetium 99m MAA. COMPARISON STUDY: None FINDINGS: Subtle in homogeneity perfusion lung bases. No major perfusion defect IMPRESSION: Low probability of pulmonary embolus The above report was generated using voice recognition software. It may contain grammatical, syntax or spelling errors. Electronically signed by: Dino Lopez M.D. 01/09/2017 3:09 PM Dictated Date/Time: 01/09/2017 3:08 PM
--- NOTE | 2017-01-09 15:48 | Progress Note ---
Internal Med Progress Note Date of Service: Jan 09, 2017. Provider Documentation: SUBJECTIVE: Seen and examined at bedside. Difficult to obtain history secondary to Aphasia Significant other at bedside helped with history Reports Rachel numbness Has been having multiple falls lately OBJECTIVE: Vital Signs-as noted below Physical Exam: General Appearance:Moderately built and nourished, no apparent distress Head: normocephalic, Atraumatic, Aphasia Eyes: normal inspection, anicteric Neck: supple, Trachea midline Respiratory/Chest: Normal breath sounds, CTA Cardiovascular: S1, S2, + murmur Abdomen/GI:Soft, Non tender, Bowel sounds present Extremities/Musculoskelatal:normal inspection, no edema Neurologic/Psych: Facial palsy, Chronic left sided weakness and also noted Right sided weakness Skin: normal color, warm Lab data as noted below. 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 No acute intracranial abnormality MRI pending Neurology consulted PT/OT May need rehab Continue , not on statins at home Check lipid panel AM Continue Keppra Check carotid USD Neuro checks B12 levels, TSH:wnl Lyme: negative PRP:pending Hypertension: stable Continue current meds Tobacco/alcohol abuse: Continue alcohol withdrawal protocol Banana bag Nicotine patch Fibromyalgia: Stable Mildly elevated D-dimer: V/Q scan:Low probability of pulmonary embolus Venous Doppler: No DVT Hypothyroidism: Continue Levothyroxine DVT Px: Lovenox subQ. Code Status: Full code Disposition: Monitor in tele May need rehab PROCEDURES: CT Head: Old left MCA territory infarct is again noted. No acute intracranial abnormality ECHO: * Sinus tachycardia is present on the echocardiogram. * No regional wall motion abnormalities noted. * The left ventricle is hyperdynamic. * Ejection Fraction = >70 %. * The right ventricle is normal in size and function. * There is a bioprosthetic aortic valve. * There is no significant aortic regurgitation. * Aortic stenosis is absent. * There is no evidence of valvular vegetation within the limits of this imaging modality. If clinical suspician for valvular vegetation exists, consider BENNY. Vital Signs: Date Time Temp Pulse Resp B/P (MAP) Pulse Ox O2 Delivery O2 Flow Rate FiO2 01/09/17 15:27 36.7 107 20 105/69 (81) 95 Room Air 01/09/17 12:19 36.8 64 18 112/81 (91) 91 Room Air 01/09/17 12:00 Room Air 01/09/17 08:00 Room Air 01/09/17 07:39 36.9 104 18 109/76 (87) 93 Room Air 01/09/17 04:00 Room Air 01/09/17 01:15 36.9 106 20 112/81 (91) 98 Room Air 01/09/17 01:00 112 24 110/81 98 01/09/17 00:56 Room Air 01/08/17 23:43 108 19 99 01/08/17 23:13 108 21 98 01/08/17 23:00 126/97 01/08/17 22:47 123/95 01/08/17 22:43 108 12 01/08/17 22:13 102 14 01/08/17 22:08 101 21 01/08/17 21:38 107 27 01/08/17 21:23 107 01/08/17 21:08 104 100 01/08/17 21:03 104/75 01/08/17 21:00 106 17 98 01/08/17 20:00 109 99 01/08/17 19:30 106 100 01/08/17 18:30 105 99 01/08/17 18:23 108 16 100/66 98 Room Air 01/08/17 16:46 108 Lab Results: Results Past 24 Hours Test 01/08/17 17:08 01/08/17 19:11 01/08/17 19:30 01/08/17 22:20 Range/Units Venous Blood pH 7.43 7.36-7.41 Venous Blood Partial Pressure CO2 36 38.0-50.0 mmHg Venous Blood Partial Pressure O2 27 mmHg Venous Blood HCO3 24 mmol/L Venous Blood Oxygen Saturation < 60.0 % Venous Blood Base Excess -0.4 mEq/L Bedside Lactic Acid Venous 2.08 0.90-1.70 mmol/L Urine Color DK YELLOW Urine Appearance CLEAR CLEAR Urine pH 5.0 4.5-7.5 Urine Specific Belding 1.019 1.000-1.030 Urine Protein NEG NEG Urine Glucose (UA) NEG NEG Urine Ketones NEG NEG Urine Occult Blood NEG NEG Urine Nitrite NEG NEG Urine Bilirubin NEG NEG Urine Urobilinogen NEG NEG Urine Leukocyte Esterase NEG NEG Urine Test NEG NEG Urine Opiates Screen NEG NEG Urine Methadone, Qualitative NEG NEG Urine Barbiturates NEG NEG Urine Phencyclidine (PCP) Level NEG NEG Ur Amphetamine/Methamphetamine NEG NEG MDMA (Ecstasy) Screen NEG NEG Urine Benzodiazepines Screen NEG NEG Urine Cocaine Metabolite NEG NEG Urine Marijuana (THC) NEG NEG Test 01/08/17 23:47 01/09/17 07:49 01/09/17 15:49 01/09/17 15:50 Range/Units D-Dimer 520 0-500 ug/L FEU Lactic Acid Level 1.8 0.4-2.0 mmol/L Ethyl Alcohol mg/dL < 3.0 0-3 mg/dl White Blood Count 4.39 4.8-10.8 K/uL Red Blood Count 3.31 4.2-5.4 M/uL Hemoglobin 11.3 12.0-16.0 g/dL Hematocrit 34.6 37-47 % Mean Corpuscular Volume 104.5 80-100 fL Mean Corpuscular Hemoglobin 34.1 25-34 pg Mean Corpuscular Hemoglobin Concent 32.7 32-36 g/dl Platelet Count 233 130-400 K/uL Mean Platelet Volume 9.2 7.4-10.4 fL Neutrophils (%) (Auto) 47.4 % Lymphocytes (%) (Auto) 40.5 % Monocytes (%) (Auto) 7.5 % Eosinophils (%) (Auto) 3.2 % Basophils (%) (Auto) 0.5 % Neutrophils # (Auto) 2.08 1.4-6.5 K/uL Lymphocytes # (Auto) 1.78 1.2-3.4 K/uL Monocytes # (Auto) 0.33 0.11-0.59 K/uL Eosinophils # (Auto) 0.14 0-0.5 K/uL Basophils # (Auto) 0.02 0-0.2 K/uL RDW Standard Deviation 57.1 36.4-46.3 fL RDW Coefficient of Variation 14.8 11.5-14.5 % Immature Granulocyte % (Auto) 0.9 % Immature Granulocyte # (Auto) 0.04 0.00-0.02 K/uL Sodium Level 142 136-145 mmol/L Potassium Level 3.5 3.5-5.1 mmol/L Chloride Level 113 98-107 mmol/L Carbon Dioxide Level 23 21-32 mmol/L Anion Gap 6.0 3-11 mmol/L Blood Urea Nitrogen 7 7-18 mg/dl Creatinine 0.47 0.60-1.20 mg/dl Est Creatinine Clear Calc Drug Dose 174.8 ml/min Estimated GFR () > 150.0 Estimated GFR (Non- 134.4 BUN/Creatinine Ratio 14.0 10-20 Random Glucose 73 70-99 mg/dl Calcium Level 8.2 8.5-10.1 mg/dl Magnesium Level 2.2 1.8-2.4 mg/dl Troponin I < 0.015 0-0.045 ng/ml Vitamin B12 Level 398 211-911 pg/mL Folate > 24.00 >5.38 ng/mL Microbiology Results 01/08/17 Blood Culture, Received Pending 01/08/17 Blood Culture, Received Pending 01/08/17 Urine Culture - Preliminary, Resulted NO GROWTH - LESS THAN 1,000 COLONIES/...
[2017-01-09] MEDS ORDERED: NURSING VERBAL MED ORDER ONE (18:15)
[2017-01-09] MEDS ORDERED: LORAZEPAM INJ 0.5 MG in SYRINGE 0.75 ML IV ONE (19:00)
[2017-01-09] MEDS ORDERED: GADAVIST IV PRN (20:30)
--- NOTE | 2017-01-09 20:37 | DIAGNOSTIC IMAGING REPORT ---
BRAIN COMBO FOR SEIZURE CLINICAL HISTORY: 26 years-old Female presenting with hx septic emb L mca infarct ,L numb, gait change. TECHNIQUE: Multisequence, multiplanar MR imaging of the brain was performed before and after the administration of intravenous contrast. IV contrast: 7 mL of Gadavist. COMPARISON: 03/06/2014. FINDINGS: Ex vacuo dilatation of the left lateral ventricle. Evidence of cystic encephalomalacia and gliosis from prior chronic left middle cerebral artery territory distribution infarct involving the left temporoparietal region. Associated atrophy of the left cerebral peduncle and left thalamus. No mass effect or midline shift. No hemorrhage or acute territorial infarct. No extra-axial fluid collection. Diminutive appearance of the left cavernous portion of the internal carotid artery and associated left anterior circulation, likely sequela of prior infarct. No abnormal parenchymal enhancement. Bone marrow signal intensity within the calvarium within normal limits. IMPRESSION: 1. Chronic left MCA territory infarct. 2. No acute intracranial abnormality. No abnormal enhancement. Electronically signed by: Manuel Ferro M.D. 01/09/2017 8:35 PM Dictated Date/Time: 01/09/2017 8:29 PM
[2017-01-09] MEDS: QUETIAPINE FUMARATE 25 MG TAB PO SCH (21:17)
[2017-01-09] MEDS: DULOXETINE HCL 60 MG CAP PO SCH (21:21)
[2017-01-09] MEDS: MONTELUKAST SOD 10 MG TAB PO SCH (21:22)
[2017-01-10] VITALS (9 sets, daily range): BP systolic 98–116; BP diastolic 67–87; PULSE 96–127; TEMP 36.3–36.9; O2SAT 93–100
[2017-01-10] MEDS: GABAPENTIN 600MG Q8H DOSE PO SCH ×3 (00:12→16:10)
[2017-01-10] MEDS: LEVOTHYROXINE 100 MCG TAB PO SCH (04:50)
[2017-01-10] MEDS: GABAPENTIN 1200MG LOADING DOSE PO SCH (04:51)
--- NOTE | 2017-01-10 07:16 | DIAGNOSTIC IMAGING REPORT ---
ULTRASOUND OF THE CAROTID ARTERIES CLINICAL HISTORY: Stroke like symtpoms COMPARISON STUDY: None. TECHNIQUE: Real-time, grayscale, and color Doppler sonography of the carotid arteries was performed. Imaging reviewed in the transverse and longitudinal planes. NASCET criteria was utilized for stenosis calcification. FINDINGS: There is minimal atherosclerotic plaque present . The peak systolic velocity within the right internal carotid artery is 83 cm/sec. The systolic velocity ratio of right internal to common carotid artery is 1.1. The peak systolic velocity within the left internal carotid artery is 53 cm/sec. The systolic velocity ratio left internal to common carotid artery is 0 point. Antegrade flow is seen in the vertebral arteries. The external carotid arteries are patent. IMPRESSION: No evidence of hemodynamically significant carotid stenosis. Electronically signed by: Ron Donnelly M.D. 01/10/2017 7:14 AM Dictated Date/Time: 01/10/2017 7:14 AM
[2017-01-10] MEDS: METOPROLOL TARTRATE 25 MG TAB PO SCH ×2 (08:33→21:22)
[2017-01-10] MEDS: LORATADINE 10 MG TAB PO SCH (08:36)
[2017-01-10] MEDS: DULOXETINE (CYMBALTA) 30 MG CAP PO SCH (08:36)
[2017-01-10] MEDS: FLUTICASONE/SALMETEROL (ADVAIR) 500/50 INH 14 PUFF INH SCH ×2 (08:36→21:06)
[2017-01-10] MEDS: ASPIRIN 81 MG ECTAB PO SCH (08:36)
[2017-01-10] MEDS: PANTOprazole SOD 40 MG TAB PO SCH (08:37)
[2017-01-10] MEDS: NICOTINE 21 MG/24 HR TDSY TD SCH (08:37)
[2017-01-10] MEDS: ENOXAPARIN 40 MG/0.4 ML SYR SC SCH (08:37)
[2017-01-10] MEDS: POLYETHYLENE (MIRALAX) 17 GM PACK PO SCH (08:37)
[2017-01-10] MEDS: MULTIVITAMIN TAB PO SCH (08:37)
[2017-01-10] MEDS: NAPROXEN 250 MG TAB PO SCH ×2 (08:37→21:20)
[2017-01-10] MEDS: LEVETIRACETAM 500 MG TAB PO SCH ×2 (08:37→21:19)
[2017-01-10] MEDS: TAMSULOSIN HCL 0.4 MG CAP PO SCH (08:37)
[2017-01-10] MEDS: THIAMINE HCL 100 MG TAB PO SCH (08:37)
--- NOTE | 2017-01-10 09:07 | NEUROLOGY CONSULTATION ---
DATE OF CONSULTATION: 01/09/2017 REASON FOR CONSULTATION: Left-sided numbness. HISTORY OF PRESENT ILLNESS: The patient is a 26-year-old who has a very significant medical history. She has a history of asthma, anxiety, seizure disorder after her stroke, endocarditis related to IV drug abuse, status post aortic valve replacement, history of an embolic CVA with a recorded mycotic aneurysm, ongoing tobacco and alcohol abuse, confinement to [facility] in 2013 for bacterial endocarditis. The patient in 2013, had a right hemiparesis, underwent bioprosthetic valve replacement, repair of subaortic annular abscess with bovine pericardial patch. She was subsequently discharged to long-term care where she was noted to have staring spells and what was thought to be seizure and she was placed on Keppra. She has a significant residual expressive aphasia, lives with her significant other Davis who is very attentive to her. She has continued to smoke and drink up to 10 alcoholic beverages per day. She has been falling more than usual for the last several weeks. For the last 2 or 3 months, she has had nausea, vomiting, cannot keep her pills down and generalized weakness. She has lost 15-20 pounds, complains of increased muscle aches. She had communicated to Davis that she had numbness in her left arm and left leg and she had been falling increasingly. She is an extremely poor historian as she has a fairly significant expressive rather than receptive aphasia. She is able to communicate somewhat with the use of a communication board. She denies headache. She has low back pain, no other spine pain. She has had some urinary retention since the stroke. She has not otherwise been ill, but a detailed review of systems is impossible. PAST MEDICAL HISTORY: As above. PAST SURGICAL HISTORY: Aortic valve replacement. MEDICATIONS ON ADMISSION: Seroquel, Flomax, Bentyl, aspirin, ProAir, buspirone, baclofen, Benadryl, Colace, Cymbalta, Advair, Folvite, Keppra, levothyroxine, Claritin, Singulair, Lopressor, naproxen, Prilosec, oral contraceptives, Zofran, MiraLax, Micro-K and Phenergan. ALLERGIES: No allergies. SOCIAL HISTORY: The patient smokes 1 to 2-1/2 packs per day, 10 mixed drinks per day. Davis does not think she uses IV drugs. On exam, 36.3, 113/76, pulse 60 -119, respiration 18-24, 91% sat Electrocardiogram on admission, sinus tachycardia. CT of the head: Old left MCA infarction. LABORATORY DATA: On admission, 5.75, H&H 12.7/38.6, MCV 103, platelet count 281. Coags: PT 10.6, PTT 24.8. AB.43, 36, pO2 27, that is venous. Chemistry profile on admission notable for a chloride of 110, magnesium of 1.7, AST 57, alk phos 135, albumin 2.7. TSH 3.4. Toxicology negative. B12 398, methylmalonic acid pending. Folic acid 24. Urinalysis is unremarkable. test negative. PHYSICAL EXAMINATION: The patient is awake and alert. 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 Multiple areas of ecchymosis, primarily on the left arm and bilateral knees. She appears to have scarring in the antecubital fossae. Pupils are equal. Optic nerves are unremarkable. There are normal [place], congenital exophoria, otherwise normal motility. A flattened right nasolabial fold, moderate dysarthria. She follows some commands. She has difficulty with repetition and significant difficulty naming. Speech is disfluent. No right/left confusion. No facial anesthesia is noted. Tongue is midline. Motor: Right upper extremity, some proximal shoulder shrug. Right lower extremity about 4. Left upper and left lower, full. Reflexes symmetrically reduced. No clonus. Toes are downgoing. No clear sensory anomalies are noted in the left or right side. Vibration sense is present at the toes. Vibration sense is present at the ankles. [id number] is limited by cognition and weakness on the right. IMPRESSION: This patient who has had a left MCA infarction in the setting of bacterial endocarditis has had a new declining gait. She is extremely difficult to examine because of her aphasia, but I see no convincing anesthesia on the left. Similarly, I see no significant signs of a myelopathic process and a neuropathic process would typically not cause a hemisensory loss. I think the first step is to obtain an MRI of the brain with and without contrast. If this is unremarkable, we may need to image further in the spine. The patient could be having falls due to nutritional deficiency including thiamine and B12. She has been supplemented with thiamine. We will check a B12 level, thiamine level. I see no obvious nerve impingement to corroborate her symptoms. We will follow with you. JESSEE
[2017-01-10 10:23] LABS: BLOOD UREA NITROGEN 6 mg/dl (7-18); BUN/CREATININE RATIO 14.8 (10-20); CALCIUM 8.8 mg/dl (8.5-10.1); CARBON DIOXIDE 23 mmol/L (21-32); CHLORIDE 111 mmol/L (98-107); CHOLESTEROL 178 mg/dl (0-200); GLUCOSE 82 mg/dl (70-99); POTASSIUM 3.7 mmol/L (3.5-5.1); SODIUM 141 mmol/L (136-145); TRIGLYCERIDES 59 mg/dl (0-150); VERY LOW DENSITY LIPOPROT CALC 12 mg/dl
[2017-01-10 10:24] LABS: CHOLESTEROL/HDL RATIO 2.5; HDL CHOLESTEROL 71 mg/dl; LDL CHOLESTEROL CALCULATED 95 mg/dl
--- NOTE | 2017-01-10 11:02 | Progress Note ---
Internal Med Progress Note Date of Service: Jan 10, 2017. Provider Documentation: SUBJECTIVE: Seen and examined at bedside. States left sided numbness is improved No new complaints Eager to get discharged Difficult to obtain history secondary to Aphasia Significant other at bedside helped with history Discussed that she is unsafe to be discharged home currently OBJECTIVE: Vital Signs-as noted below Physical Exam: General Appearance:Moderately built and nourished, no apparent distress Head: normocephalic, Atraumatic, Aphasia Eyes: normal inspection, anicteric Neck: supple, Trachea midline Respiratory/Chest: Normal breath sounds, CTA Cardiovascular: S1, S2, + murmur Abdomen/GI:Soft, Non tender, Bowel sounds present Extremities/Musculoskelatal:normal inspection, no edema Neurologic/Psych: Facial palsy, Chronic R sided weakness UR>LE and some Right sided weakness Skin: normal color, warm Lab data as noted below. 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 No acute intracranial abnormality Appreciate Neurology Input PT/OT May need rehab Continue ASA, not on statins at home lipid panel:wnl Continue Keppra carotid USD: No significant carotid stenosis Neuro checks B12 levels, TSH:wnl Lyme: negative PRP:pending Thiamine levels:pending MRI Brain:no intracranial abnormality Check MRI Spine Will benefit from rehab Hypertension: stable Continue current meds Tobacco/alcohol abuse: Continue alcohol withdrawal protocol Banana bag Nicotine patch Fibromyalgia: Stable Mildly elevated D-dimer: V/Q scan:Low probability of pulmonary embolus Venous Doppler: No DVT Hypothyroidism: Continue Levothyroxine DVT Px: Lovenox subQ. Code Status: Full code Disposition: Monitor in tele Will benefit from rehab PROCEDURES: CT Head: Old left MCA territory infarct is again noted. No acute intracranial abnormality MRI Brain: 1. Chronic left MCA territory infarct. 2. No acute intracranial abnormality. No abnormal enhancement. Carotid Doppler: No evidence of hemodynamically significant carotid stenosis. ECHO: * Sinus tachycardia is present on the echocardiogram. * No regional wall motion abnormalities noted. * The left ventricle is hyperdynamic. * Ejection Fraction = >70 %. * The right ventricle is normal in size and function. * There is a bioprosthetic aortic valve. * There is no significant aortic regurgitation. * Aortic stenosis is absent. * There is no evidence of valvular vegetation within the limits of this imaging modality. If clinical suspician for valvular vegetation exists, consider BENNY. Vital Signs: Date Time Temp Pulse Resp B/P (MAP) Pulse Ox O2 Delivery O2 Flow Rate FiO2 01/10/17 07:45 93 Room Air 01/10/17 07:09 36.8 109 18 98/67 (77) 96 01/10/17 04:45 36.6 96 18 116/87 (97) 100 Room Air 01/10/17 04:00 Room Air 01/10/17 01:22 Room Air 01/09/17 23:26 36.7 110 20 109/78 (88) 97 Room Air 01/09/17 20:19 36.3 119 20 113/76 (88) 99 Room Air 01/09/17 20:00 93 Room Air 01/09/17 16:00 93 Room Air 01/09/17 15:27 36.7 107 20 105/69 (81) 95 Room Air 01/09/17 12:19 36.8 64 18 112/81 (91) 91 Room Air 01/09/17 12:00 Room Air Lab Results: Results Past 24 Hours Test 01/09/17 16:57 01/10/17 09:28 Range/Units Sodium Level 141 136-145 mmol/L Potassium Level 3.7 3.5-5.1 mmol/L Chloride Level 111 98-107 mmol/L Carbon Dioxide Level 23 21-32 mmol/L Anion Gap 7.0 3-11 mmol/L Blood Urea Nitrogen 6 7-18 mg/dl Creatinine 0.40 0.60-1.20 mg/dl Est Creatinine Clear Calc Drug Dose 203.0 ml/min Estimated GFR () > 150.0 Estimated GFR (Non- 141.7 BUN/Creatinine Ratio 14.8 10-20 Random Glucose 82 70-99 mg/dl Calcium Level 8.8 8.5-10.1 mg/dl Triglycerides Level 59 0-150 mg/dl Cholesterol Level 178 0-200 mg/dl HDL Cholesterol 71 mg/dl LDL Cholesterol, Calculated 95 mg/dl VLDL Cholesterol, Calculated 12 mg/dl Cholesterol/HDL Ratio 2.5
[2017-01-10] MEDS ORDERED: NURSING VERBAL MED ORDER ONE ×2 (14:30→17:30)
[2017-01-10] MEDS ORDERED: LORAZEPAM INJ 0.5 MG in SYRINGE 0.75 ML IV SCH (15:00)
[2017-01-10] MEDS: ACETAMINOPHEN 325 MG TAB PO PRN (16:10)
[2017-01-10] MEDS ORDERED: SODIUM CHLORIDE 0.9% 500ML 500 ML IV SCH (18:15)
--- NOTE | 2017-01-10 18:54 | PROGRESS NOTE ---
DATE: 01/10/2017 SUBJECTIVE: I am seeing Ms. Verdin in followup of remote history of a left MCA infarction related to septic emboli with prominent residual aphasia and right upper greater than lower hemiparesis. She had been falling and complaining of numbness on the left side. An MRI of the brain was noncontributory showed no new central etiology of her symptoms. Carotid ultrasound has been negative. She is scheduled to have an MRI of the osman spine PHYSICAL EXAMINATION: GENERAL: She is awake and alert, asking to go home. VITAL SIGNS: 36.9, 117, 18, 110/76, 94%. Speech is aphasic. IMPRESSION: Subjective complaints of left-sided numbness, increased falls. No evidence of brain etiology. PLAN: MRI osman spine Continue supplemental thiamine. Additional lab work including a B12 and folate and thyroid function have been normal. I feel strongly that the patient will need some inpatient rehabilitation. Certainly, her substance abuse with alcohol, no doubt has contributed to some gait instability. She may also need some alcohol-related counseling. Will follow with you JESSEE
[2017-01-10] MEDS: KETOROLAC TROMETHAMINE 30 MG/ML VIAL IV PRN (19:35)
[2017-01-10] MEDS: DULOXETINE HCL 60 MG CAP PO SCH (21:19)
[2017-01-10] MEDS: QUETIAPINE FUMARATE 25 MG TAB PO SCH (21:20)
[2017-01-10] MEDS: MONTELUKAST SOD 10 MG TAB PO SCH (21:20)
[2017-01-10] MEDS ORDERED: LACTATED RINGER'S 1000ML 1,000 ML IV STA (22:45)
[2017-01-10] MEDS ORDERED: POTASSIUM CHLORIDE 10 MEQ TABCR PO STA (22:45)
[2017-01-10] MEDS ORDERED: METOPROLOL TARTRATE 25 MG TAB PO ONE (23:00)
[2017-01-10] MEDS ORDERED: IBUPROFEN 200 MG TAB PO PRN (23:45)
[2017-01-10 23:51] LABS: BASO % 0.5 %; BASO ABS # 0.02 K/uL (0-0.2); COMPLETE YES; EOS % 4.8 %; HEMATOCRIT 33.5 % (37-47); IG% 0.5 %; LYMPH % 31.8 %; LYMPH ABS # 1.39 K/uL (1.2-3.4); MEAN CELL VOLUME 104.7 fL (80-100); MEAN CORPUSCULAR HEMOGLOBIN 33.8 pg (25-34); MEAN CORPUSCULAR HGB CONC 32.2 g/dl (32-36); MEAN PLATELET VOLUME 9.4 fL (7.4-10.4); MONO % 8.2 %; NEUT % 54.2 %; PLATELET COUNT 247 K/uL (130-400); WHITE BLOOD COUNT 4.37 K/uL (4.8-10.8)
[2017-01-11] VITALS (10 sets, daily range): BP systolic 95–116; BP diastolic 64–82; PULSE 91–117; TEMP 36.3–37; O2SAT 94–99
[2017-01-11 00:26] LABS: BLOOD UREA NITROGEN 6 mg/dl (7-18); BUN/CREATININE RATIO 12.7 (10-20); CALCIUM 8.2 mg/dl (8.5-10.1); CARBON DIOXIDE 25 mmol/L (21-32); CHLORIDE 113 mmol/L (98-107); GLUCOSE 80 mg/dl (70-99); MAGNESIUM 2.1 mg/dl (1.8-2.4); POTASSIUM 3.5 mmol/L (3.5-5.1); SODIUM 143 mmol/L (136-145)
[2017-01-11] MEDS ORDERED: POTASSIUM CHLORIDE 10 MEQ TABCR PO STA ×2 (00:28→00:52)
[2017-01-11] MEDS ORDERED: LORAZEPAM 0.5 MG TAB PO ONE ×3 (00:30→23:00)
[2017-01-11] MEDS: GABAPENTIN 1200MG LOADING DOSE PO SCH ×2 (03:00→03:51)
[2017-01-11] MEDS: LEVOTHYROXINE 100 MCG TAB PO SCH (06:13)
[2017-01-11] MEDS: GABAPENTIN 600MG Q12H DOSE PO SCH ×2 (06:13→17:50)
--- NOTE | 2017-01-11 06:58 | DIAGNOSTIC IMAGING REPORT ---
MRI OF THE CERVICAL SPINE WITHOUT CONTRAST CLINICAL HISTORY: Left-sided numbness. Right-sided weakness. COMPARISON: None. TECHNIQUE: Utilizing a 1.5 Mary magnet and dedicated coil, multiplanar, multiecho imaging of the cervical spine was performed without IV contrast. FINDINGS: Alignment of the cervical spine is anatomic. Vertebral body heights are maintained. Cervical cord signal and caliber are normal. There is no intracanalicular mass or fluid collection. Paravertebral soft tissues are unremarkable. The neural foramen are suboptimally assessed on this exam. C2-C3: The central canal and neural foramen are patent. C3-C4: The central canal and neural foramen are patent. C4-C5: The central canal and neural foramen are patent. C5-C6: There is minimal disc bulge. The central canal and neural foramen are patent. C6-C7: There is a tiny central disc protrusion. The central canal and neural foramen are patent. C7-T1: Central canal and neural foramen are patent. IMPRESSION: 1. Normal cervical cord signal and caliber. 2. Patent central canal and neural foramen. Minimal disc bulge at C5-C6 and tiny central disc protrusion at C6-C7. Essentially normal MRI of the cervical spine. Electronically signed by: Baldo Santos M.D. 01/11/2017 6:57 AM Dictated Date/Time: 01/11/2017 6:52 AM
--- NOTE | 2017-01-11 07:05 | DIAGNOSTIC IMAGING REPORT ---
MRI OF THE THORACIC SPINE WITHOUT CONTRAST CLINICAL HISTORY: Left-sided numbness. Right-sided weakness. COMPARISON: None. TECHNIQUE: Utilizing a 1.5 Mary magnet and dedicated coil, multiplanar, multiecho imaging of the thoracic spine was performed without IV contrast. FINDINGS: Alignment of the thoracic spine is anatomic. Vertebral body heights are maintained. There is no marrow replacement or marrow edema. Thoracic cord signal and caliber are normal. No intracanalicular mass or fluid collection is present. There is a mild disc bulge with tiny right paracentral disc protrusion at T11-T12. The neural foramen are patent. There is minimal central canal narrowing at this level. Paravertebral soft tissues are unremarkable. IMPRESSION: 1. Normal thoracic cord signal and caliber. 2. Mild disc bulge with tiny right paracentral disc protrusion at T11-T12 that results in minimal narrowing of the central canal. Otherwise, normal MRI of the thoracic spine. Electronically signed by: Baldo Santos M.D. 01/11/2017 7:04 AM Dictated Date/Time: 01/11/2017 6:57 AM
--- NOTE | 2017-01-11 07:08 | DIAGNOSTIC IMAGING REPORT ---
MRI OF THE LUMBAR SPINE WITHOUT CONTRAST CLINICAL HISTORY: Left-sided numbness. Right-sided weakness. COMPARISON STUDY: No previous studies for comparison. TECHNIQUE: Utilizing a 1.5 Mary magnet and dedicated coil, multiplanar, multiecho imaging of the lumbar spine was performed without IV contrast. FINDINGS: For purposes of numbering on this exam, the L5-S1 disc space is assigned to axial image 33 of 35. Alignment of the lumbar spine is anatomic. Vertebral body heights are maintained. There is no marrow edema or marrow replacement. No intracanalicular mass or fluid collection is identified. Study is mildly compromised by motion artifact. There is minimal disc bulge at T11-T12 with a tiny right paracentral disc protrusion which is better depicted on the MRI of the thoracic spine. L1-2: The central canal and neural foramen are patent. L2-3: The central canal and neural foramen are patent. L3-4: The central canal and neural foramen are patent. L4-5: The central canal and neural foramen are patent. L5-S1: The central canal and neural foramen are patent. IMPRESSION: Normal unenhanced MRI of the lumbar spine. Electronically signed by: Baldo Santos M.D. 01/11/2017 7:07 AM Dictated Date/Time: 01/11/2017 7:04 AM
[2017-01-11 07:35] LABS: BLOOD UREA NITROGEN 8 mg/dl (7-18); CALCIUM 8.4 mg/dl (8.5-10.1); CARBON DIOXIDE 24 mmol/L (21-32); CHLORIDE 115 mmol/L (98-107); CREATININE 0.44 mg/dl (0.60-1.20); GLUCOSE 74 mg/dl (70-99); POTASSIUM 3.9 mmol/L (3.5-5.1); SODIUM 145 mmol/L (136-145)
[2017-01-11] MEDS: PANTOprazole SOD 40 MG TAB PO SCH (08:37)
[2017-01-11] MEDS: DULOXETINE (CYMBALTA) 30 MG CAP PO SCH (08:37)
[2017-01-11] MEDS: FLUTICASONE/SALMETEROL (ADVAIR) 500/50 INH 14 PUFF INH SCH ×2 (08:37→20:51)
[2017-01-11] MEDS: METOPROLOL TARTRATE 25 MG TAB PO SCH ×2 (08:38→20:56)
[2017-01-11] MEDS: NICOTINE 21 MG/24 HR TDSY TD SCH (08:39)
[2017-01-11] MEDS: LEVETIRACETAM 500 MG TAB PO SCH ×2 (08:39→20:57)
[2017-01-11] MEDS: NAPROXEN 250 MG TAB PO SCH ×2 (08:39→20:57)
[2017-01-11] MEDS: ASPIRIN 81 MG ECTAB PO SCH (08:40)
[2017-01-11] MEDS: LORATADINE 10 MG TAB PO SCH (08:41)
[2017-01-11] MEDS: MULTIVITAMIN TAB PO SCH (08:41)
[2017-01-11] MEDS: POLYETHYLENE (MIRALAX) 17 GM PACK PO SCH (08:41)
[2017-01-11] MEDS: THIAMINE HCL 100 MG TAB PO SCH (08:43)
[2017-01-11] MEDS: ENOXAPARIN 40 MG/0.4 ML SYR SC SCH (08:50)
[2017-01-11] MEDS: TAMSULOSIN HCL 0.4 MG CAP PO SCH (09:08)
--- NOTE | 2017-01-11 12:30 | Progress Note ---
Internal Med Progress Note Date of Service: Jan 11, 2017. Provider Documentation: SUBJECTIVE: Seen and examined at bedside. Less left sided numbness today Weakness improved per patient Has been refusing physical therapy and rehab placement No new complaints Eager to get discharged home Difficult to obtain history secondary to Aphasia No family at bedside Discussed that she is unsafe to be discharged home but insists on being discharged home OBJECTIVE: Vital Signs-as noted below Physical Exam: General Appearance:Moderately built and nourished, no apparent distress Head: normocephalic, Atraumatic, Aphasia Eyes: normal inspection, anicteric Neck: supple, Trachea midline Respiratory/Chest: Normal breath sounds, CTA Cardiovascular: S1, S2, + murmur Abdomen/GI:Soft, Non tender, Bowel sounds present Extremities/Musculoskelatal:normal inspection, no edema Neurologic/Psych: Facial palsy, Chronic R sided weakness UR>LE and some Right sided weakness Skin: normal color, warm Lab data as noted below. 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 No acute intracranial abnormality Appreciate Neurology Input PT/OT May need rehab Continue ASA, not on statins at home lipid panel:wnl Continue Keppra carotid USD: No significant carotid stenosis Neuro checks B12 levels, TSH:wnl Lyme: negative PRP:Non reactive Thiamine levels:pending MRI Brain:no intracranial abnormality MRI Spine: No significant pathology Will benefit from rehab but has been refusing therapy and insists on being discharged home Ambulatory dysfunction H/O multiple falls lately High risk for fall Refuses PT/OT, rehab placement Discussed in detail with patient and significant other regarding risks of fall and other complications as she has been not able to manage at home herself Could not assess her understanding of the situation as difficult to obtain information given her aphasia. Off note: Discusses with her friend about having alcohol in lesser quantities once she gets discharged Will involve Psychiatry to assess her decision making capacity, also given alcohol use disorder Hypertension: stable Continue current meds Tobacco/alcohol abuse: Continue alcohol withdrawal protocol Banana bag Nicotine patch Fibromyalgia: Stable Mildly elevated D-dimer: V/Q scan:Low probability of pulmonary embolus Venous Doppler: No DVT Hypothyroidism: Continue Levothyroxine DVT Px: Lovenox subQ. Code Status: Full code Disposition: Monitor in tele Will benefit from rehab but refuses PROCEDURES: CT Head: Old left MCA territory infarct is again noted. No acute intracranial abnormality MRI Brain: 1. Chronic left MCA territory infarct. 2. No acute intracranial abnormality. No abnormal enhancement. Carotid Doppler: No evidence of hemodynamically significant carotid stenosis. ECHO: * Sinus tachycardia is present on the echocardiogram. * No regional wall motion abnormalities noted. * The left ventricle is hyperdynamic. * Ejection Fraction = >70 %. * The right ventricle is normal in size and function. * There is a bioprosthetic aortic valve. * There is no significant aortic regurgitation. * Aortic stenosis is absent. * There is no evidence of valvular vegetation within the limits of this imaging modality. If clinical suspician for valvular vegetation exists, consider BENNY. Vital Signs: Date Time Temp Pulse Resp B/P (MAP) Pulse Ox O2 Delivery O2 Flow Rate FiO2 01/11/17 16:00 95 Room Air 01/11/17 15:35 36.8 108 20 108/79 (89) 96 Room Air 01/11/17 12:00 94 Room Air 01/11/17 11:51 36.3 91 18 95/67 (76) 99 Room Air 01/11/17 08:01 36.7 92 18 98/64 (75) 96 Room Air 01/11/17 08:00 96 Room Air 01/11/17 04:16 Room Air 01/11/17 00:05 37.0 114 15 116/82 (93) 96 01/11/17 00:00 Room Air 01/10/17 20:04 36.3 127 18 107/73 (84) 99 Room Air 01/10/17 20:00 94 Room Air Lab Results: Results Past 24 Hours Test 01/10/17 23:31 01/11/17 06:16 Range/Units White Blood Count 4.37 4.8-10.8 K/uL Red Blood Count 3.20 4.2-5.4 M/uL Hemoglobin 10.8 12.0-16.0 g/dL Hematocrit 33.5 37-47 % Mean Corpuscular Volume 104.7 80-100 fL Mean Corpuscular Hemoglobin 33.8 25-34 pg Mean Corpuscular Hemoglobin Concent 32.2 32-36 g/dl Platelet Count 247 130-400 K/uL Mean Platelet Volume 9.4 7.4-10.4 fL Neutrophils (%) (Auto) 54.2 % Lymphocytes (%) (Auto) 31.8 % Monocytes (%) (Auto) 8.2 % Eosinophils (%) (Auto) 4.8 % Basophils (%) (Auto) 0.5 % Neutrophils # (Auto) 2.37 1.4-6.5 K/uL Lymphocytes # (Auto) 1.39 1.2-3.4 K/uL Monocytes # (Auto) 0.36 0.11-0.59 K/uL Eosinophils # (Auto) 0.21 0-0.5 K/uL Basophils # (Auto) 0.02 0-0.2 K/uL RDW Standard Deviation 56.1 36.4-46.3 fL RDW Coefficient of Variation 14.5 11.5-14.5 % Immature Granulocyte % (Auto) 0.5 % Immature Granulocyte # (Auto) 0.02 0.00-0.02 K/uL Sodium Level 143 145 136-145 mmol/L Potassium Level 3.5 3.9 3.5-5.1 mmol/L Chloride Level 113 115 98-107 mmol/L Carbon Dioxide Level 25 24 21-32 mmol/L Anion Gap 5.0 6.0 3-11 mmol/L Blood Urea Nitrogen 6 8 7-18 mg/dl Creatinine 0.50 0.44 0.60-1.20 mg/dl Est Creatinine Clear Calc Drug Dose 162.4 187.0 ml/min Estimated GFR () > 150.0 > 150.0 Estimated GFR (Non- 131.7 137.4 BUN/Creatinine Ratio 12.7 17.0 10-20 Random Glucose 80 74 70-99 mg/dl Calcium Level 8.2 8.4 8.5-10.1 mg/dl Magnesium Level 2.1 1.8-2.4 mg/dl
--- NOTE | 2017-01-11 13:25 | PROGRESS NOTE ---
DATE: 01/11/2017 I am seeing Mrs. Verdin in followup of gait dysfunction with subjective complaints of hemianesthesia in a patient who is aphasic from a septic emboli from endocarditis. She has no new complaints. PHYSICAL EXAMINATION: VITAL SIGNS: 36.3, 91, 18, 95/67, 76, 99%. NEUROLOGIC: Awake and alert. There is some strabismus, flattened right nasolabial fold, profound expressive aphasia, modest dysarthria. Right arm is 0, right leg is about 4. Left arm full, left leg full. No clear hemianesthesia. Right toe is mute. Left toe is downgoing. IMPRESSION: Alla has a history of left middle cerebral artery infarction with expressive greater than receptive aphasia, has had a change in her gait. MRI brain, panspine reveal no new etiology. PLAN: I would recommend she continue thiamine, alcohol abstinence. I suspect she will need some inpatient rehabilitation and deferred to physical therapy regarding their assessment. As an outpatient, it may be reasonable to have her have a nerve conduction EMG of the left upper and left lower extremities. Labs for typical causes of neuropathy were unremarkable. We will follow with you. JESSEE
[2017-01-11] MEDS: KETOROLAC TROMETHAMINE 30 MG/ML VIAL IV PRN ×2 (14:08→19:08)
[2017-01-11] MEDS: DULOXETINE HCL 60 MG CAP PO SCH (20:54)
[2017-01-11] MEDS: QUETIAPINE FUMARATE 25 MG TAB PO SCH (20:56)
[2017-01-11] MEDS: MONTELUKAST SOD 10 MG TAB PO SCH (20:56)
[2017-01-11] MEDS ORDERED: ACETAMINOPHEN 325 MG TAB PO ONE (22:56)
[2017-01-11] MEDS: BACLOFEN 10 MG TAB PO PRN (23:14)
[2017-01-12] VITALS (11 sets, daily range): BP systolic 99–131; BP diastolic 68–96; PULSE 82–110; TEMP 36.3–36.9; O2SAT 95–98
[2017-01-12] MEDS: GABAPENTIN 1200MG LOADING DOSE PO SCH (03:00)
[2017-01-12] MEDS: LEVOTHYROXINE 100 MCG TAB PO SCH (06:19)
[2017-01-12] MEDS: FLUTICASONE/SALMETEROL (ADVAIR) 500/50 INH 14 PUFF INH SCH ×2 (08:21→20:32)
[2017-01-12] MEDS: METOPROLOL TARTRATE 25 MG TAB PO SCH ×2 (08:21→20:41)
[2017-01-12] MEDS: MULTIVITAMIN TAB PO SCH (08:21)
[2017-01-12] MEDS: DULOXETINE (CYMBALTA) 30 MG CAP PO SCH (08:22)
[2017-01-12] MEDS: LORATADINE 10 MG TAB PO SCH (08:22)
[2017-01-12] MEDS: LEVETIRACETAM 500 MG TAB PO SCH ×2 (08:22→20:36)
[2017-01-12] MEDS: ENOXAPARIN 40 MG/0.4 ML SYR SC SCH (08:22)
[2017-01-12] MEDS: NAPROXEN 250 MG TAB PO SCH ×2 (08:23→20:43)
[2017-01-12] MEDS: ASPIRIN 81 MG ECTAB PO SCH (08:23)
[2017-01-12] MEDS: PANTOprazole SOD 40 MG TAB PO SCH (08:23)
[2017-01-12] MEDS: THIAMINE HCL 100 MG TAB PO SCH (08:23)
[2017-01-12] MEDS: POLYETHYLENE (MIRALAX) 17 GM PACK PO SCH (08:24)
[2017-01-12] MEDS: TAMSULOSIN HCL 0.4 MG CAP PO SCH (08:24)
[2017-01-12] MEDS: NICOTINE 21 MG/24 HR TDSY TD SCH (08:24)
[2017-01-12] MEDS: KETOROLAC TROMETHAMINE 30 MG/ML VIAL IV PRN ×3 (10:52→23:03)
--- NOTE | 2017-01-12 10:58 | Psychiatric Consultation ---
Consultation Date of Consultation Jan 12, 2017. Identifying Data 26 y/o female from [place] who has a history of anxiety, alcohol and tobacco abuse, seizure disorder, and CVA secondary to mycotic aneurysm from endocarditis who is admitted to the hospital service with left sided weakness. Psychiatry is consulted to assess capacity to refuse the recommendation for inpatient physical rehab. Chief Complaint "No, I can't". History of Present Illness Patient lives in [place], has a friend who helps to care for her, and has in home care services (up to 60 hours a week), but had been refusing them at times, and presented to the ER with weakness and multiple falls at home. Social work spoke to her rip saw operator through [facility], who states the patient has 62 hours of caregiver time at home, but refuses to accept the service most of the time. Her friend who lives with her and helps care for her at home has been involved in her care and states that he is unable to provide for her needs given her current condition. Primary team has recommended rehabilitation placement, which the patient has refused. Psychiatric liaison nurse met with her last evening, and she was able to communicate with the assistance of her friend, Davis, and a communication board. She stated she did not want to go to [facility], because it is too difficult. She said she wants to go home to her apartment and 2 dogs. Her alcohol and tobacco use were discussed, and although she states people have told her she should quit, she did not know why. She did to smoking a pack plus a day and drinking up to 10 alcoholic beverages daily. She denied having a POA, and said that she would like her friend Davis to be her POA, but he said he was not sure he wanted that responsibility. On my assessment, the patient repeatedly says "no," when attempting to explain the reason for the consult. When asked to reiterate the treatment recommendations to me, she is unable to do so, repeatedly stating "no, " "I can't," and "I'm sorry." I again reviewed the treatment recommendations with her, and she continues to state no." When asked to explain why she does not want to go to rehabilitation, she says "a lot" and later says "work." She then repeatedly says "home," and shows me a picture of her dogs on her phone. She is unable to explain the risks of refusing rehabilitation in going home, despite asking several times. She is unable to explain why she is in the hospital, what she is diagnosed with, what medicines she takes, or what they are for. She cannot give an alternate plan for care at home. She admits to abusing alcohol, and rolls her eyes when discussing concerns about this. She denies suicidal thoughts, homicidal thoughts, and psychosis. Past Psychiatric History Current OP Treatment: psychiatrist (she is unable to state the name of her psychiatrist) Past Medical/Surgical History (1) Seizure disorder (2) CVA (cerebral vascular accident) Allergies Allergies: Coded Allergies: No Known Allergies (Unverified , NONE, 01/08/17) Home Medications Scheduled Albuterol Hfa (Ventolin Hfa), 2-4 PUFFS INH Q6H Aspirin (Aspirin Ec), 81 MG PO DAILY Baclofen (Baclofen), 10 MG PO UD Buspirone Hcl (Buspirone Hcl), 15 MG PO TID Duloxetine HCl (Cymbalta), 60 MG PO HS Duloxetine HCl (Cymbalta), 1 CAP PO QAM Fluticasone Prop/Salmeterol (Advair Diskus 500/50 60 Dose), 1 PUFF INH BID Folic Acid (Folvite), 1 MG PO DAILY Levetiracetam (Keppra), 500 MG PO BID Levothyroxine Sodium (Levothyroxine Sodium), 100 MCG PO DAILY Loratadine (Claritin), 10 MG PO DAILY Melatonin (Melatonin Maximum Strengt), 1 TAB PO HS Metoprolol Tartrate (Lopressor) (Lopressor), 25 MG PO BID Montelukast Sodium (Singulair), 10 MG PO HS Naproxen (Naprosyn), 500 MG PO BID Norethindrone (Contraceptive) (Addie-Be), 1 TAB PO DAILY Omeprazole (Prilosec), 20 MG PO DAILY Polyethylene Glycol 3350 (Miralax), 17 GM PO DAILY Potassium Chloride (Micro-K Ext Rel), 20 MEQ PO BID Quetiapine Fumarate (Seroquel), 25 MG PO HS Tamsulosin Hcl (Flomax), 0.4 MG PO DAILY Scheduled PRN Albuterol Sulfate (Proair Respiclick), 2 PUFFS INH Q6H PRN for Shortness of Breath Diphenhydramine Hcl (Benadryl Allergy), 1 CAP PO HS PRN for Itching Docusate Sodium (Colace), 1 CAP PO BID PRN for Constipation Ondansetron Hcl (Zofran), 4 MG PO Q8 PRN for Nausea Promethazine Hcl (Phenergan), 25 MG PO Q4H PRN for Nausea Miscellaneous Medications [compound cream] Family History Unknown Alcohol Use Alcohol Use In Past 12 Months: Yes (Daily, up to 10 drinks daily) Smoking Use Smoking Status: Current Every Day Smoker (1+ PPD) Substance History History of IVDU which led to endocarditis and then stroke. Unknown when last use was. Personal History Lives in: [place] with her friend, Davis Dexter: States that she is from this area Review of Systems Attempted to review 10 systems, but the patient was a poor participant. Examination Vital Signs Vital Signs Past 12 Hours Date Time Temp Pulse Resp B/P (MAP) Pulse Ox O2 Delivery O2 Flow Rate FiO2 01/12/17 08:18 36.8 82 18 114/81 (92) 96 Room Air 01/12/17 08:00 95 Room Air 01/12/17 04:00 95 Room Air 01/12/17 00:00 95 Room Air 01/11/17 23:30 36.4 115 18 101/70 (80) 97 Room Air Mental Examination During interview pt is: alert and oriented, cooperative, other Appearance: disheveled, other (obese, unkempt, long hair is unwashed entangled) Eye contact is: fair Motor behavior is: no abnormal motor movements Speech: other (minimal speech, 1-2 word answers only, often repeats the same thing over and over) Affect: irritable (frustrated) Mood is: irritable Thought process: goal directed Thought content: reality based without delusions Suicidal thought are: denied Homicidal thoughts are: denied Hallucinations: denies auditory, denies visual Cognition: other (expressive aphasia) Insight: impaired Judgement: impaired Impression / Recommendations Impression 26-year-old female with multiple medical problems including a CVA resulting in expressive aphasia who is admitted with weakness and falls at home. Her outpatient providers and friend who lives with her do not feel able to provide for her needs at home, as she has been noncompliant with her in-home services, continues to abuse alcohol, and is physically decompensated. The primary team is recommending inpatient rehabilitation, and at this time, the patient lacks capacity to refuse this recommendation, as she is unable to demonstrate an understanding of the risks of refusing the recommended treatment or to reason about appropriate treatment options. An alternate decision maker should be assigned for placement purposes.
--- NOTE | 2017-01-12 12:51 | PROGRESS NOTE ---
DATE: 01/12/2017 I am seeing Alla in followup. She was admitted for left-sided numbness. She has a history of a septic emboli with left MCA infarction and fairly profound aphasia. MRI brain, cervical, thoracic have not revealed an etiology. She is on supplemental thiamine. She has a history of seizure since the embolic stroke, has not had any seizures. Keppra level is pending. PHYSICAL EXAMINATION: GENERAL: She is awake and alert, in no distress. NEUROLOGIC: She has expressive greater than receptive aphasia, congenital strabismus, flattened right nasolabial fold, right arm zero, right leg 4, left arm and left leg appear full. Reflexes are diminished in the ankles. Toes are downgoing. Vibration sense is present in the toes. The patient was not ambulated as she had an indwelling Sams. IMPRESSION: This patient had an embolic left middle cerebral artery infarction in the remote past, followed by what may have been partial complex seizure. She had been falling at home. The patient was drinking significant amounts of daily alcohol. Etiology of her falls is unclear. Certainly nothing obvious central is present. I see nothing obvious in terms of a focal neuropathy of the left arm or leg that could cause her symptoms. She could have an alcohol related neuropathy, although that would not cause episodic numbness and tingling in the left arm and leg. Continue thiamine supplementation. The patient needs to see physical therapy to see if she needs inpatient rehabilitation. It would be difficult to say if the patient was clinically competent due to her aphasia, but she certainly in the past has been acting against her own best interest. We will continue to follow with you. JESSEE
--- NOTE | 2017-01-12 12:59 | Progress Note ---
Internal Med Progress Note Date of Service: Jan 12, 2017. Provider Documentation: SUBJECTIVE: Seen and examined at bedside. Reports Intermittent left UE numbness Weakness improved per patient No new complaints Difficult to obtain history secondary to Aphasia No family at bedside OBJECTIVE: Vital Signs-as noted below Physical Exam: General Appearance:Moderately built and nourished, no apparent distress Head: normocephalic, Atraumatic, Aphasia Eyes: normal inspection, anicteric Neck: supple, Trachea midline Respiratory/Chest: Normal breath sounds, CTA Cardiovascular: S1, S2, + murmur Abdomen/GI:Soft, Non tender, Bowel sounds present Extremities/Musculoskelatal:normal inspection, no edema Neurologic/Psych: Facial palsy, Chronic R sided weakness UR>LE and some Right sided weakness Skin: normal color, warm Lab data as noted below. 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 No acute intracranial abnormality Appreciate Neurology Input PT/OT: recommends rehab Continue ASA, not on statins at home lipid panel:wnl Continue Keppra carotid USD: No significant carotid stenosis Neuro checks B12 levels, TSH:wnl Lyme: negative PRP:Non reactive Thiamine levels:pending MRI Brain:no intracranial abnormality MRI Spine: No significant pathology Will benefit from rehab but has been refusing therapy and insists on being discharged home Ambulatory dysfunction H/O multiple falls lately per her friend High risk for fall Refuses rehab placement Now cooperative with PT/OT Discussed in detail with patient and significant other regarding risks of fall and other complications as she has been not able to manage at home herself Could not assess her understanding of the situation as difficult to obtain information given her aphasia. Off note: Discusses with her friend about having alcohol in lesser quantities once she gets discharged Consulted Psychiatry Hypertension: stable Continue current meds Tobacco/alcohol abuse: Continue alcohol withdrawal protocol Banana bag Nicotine patch Fibromyalgia: Stable Mildly elevated D-dimer: V/Q scan:Low probability of pulmonary embolus Venous Doppler: No DVT Hypothyroidism: Continue Levothyroxine DVT Px: Lovenox subQ. Code Status: Full code Disposition: Monitor in tele PT/OT recommends Rehab PROCEDURES: CT Head: Old left MCA territory infarct is again noted. No acute intracranial abnormality MRI Brain: 1. Chronic left MCA territory infarct. 2. No acute intracranial abnormality. No abnormal enhancement. Carotid Doppler: No evidence of hemodynamically significant carotid stenosis. ECHO: * Sinus tachycardia is present on the echocardiogram. * No regional wall motion abnormalities noted. * The left ventricle is hyperdynamic. * Ejection Fraction = >70 %. * The right ventricle is normal in size and function. * There is a bioprosthetic aortic valve. * There is no significant aortic regurgitation. * Aortic stenosis is absent. * There is no evidence of valvular vegetation within the limits of this imaging modality. If clinical suspician for valvular vegetation exists, consider BENNY. Vital Signs: Date Time Temp Pulse Resp B/P (MAP) Pulse Ox O2 Delivery O2 Flow Rate FiO2 01/12/17 12:21 36.3 96 18 116/82 (93) 97 Room Air 01/12/17 12:00 95 Room Air 01/12/17 08:18 36.8 82 18 114/81 (92) 96 Room Air 01/12/17 08:00 95 Room Air 01/12/17 04:00 95 Room Air 01/12/17 00:00 95 Room Air 01/11/17 23:30 36.4 115 18 101/70 (80) 97 Room Air 01/11/17 20:08 36.5 117 18 111/75 (87) 97 Room Air 01/11/17 20:00 95 Room Air 01/11/17 16:00 95 Room Air 01/11/17 15:35 36.8 108 20 108/79 (89) 96 Room Air
[2017-01-12] MEDS: BACLOFEN 10 MG TAB PO PRN (14:48)
[2017-01-12] MEDS ORDERED: GABAPENTIN 600MG X1 DOSE PO SCH (18:00)
[2017-01-12] MEDS: DULOXETINE HCL 60 MG CAP PO SCH (20:35)
[2017-01-12] MEDS: QUETIAPINE FUMARATE 25 MG TAB PO SCH (20:43)
[2017-01-12] MEDS: MONTELUKAST SOD 10 MG TAB PO SCH (20:44)
[2017-01-13] VITALS (10 sets, daily range): BP systolic 106–126; BP diastolic 74–95; PULSE 80–93; TEMP 36.7–36.8; O2SAT 94–99
[2017-01-13] MEDS: GABAPENTIN 1200MG LOADING DOSE PO SCH (03:00)
[2017-01-13] MEDS: LEVOTHYROXINE 100 MCG TAB PO SCH (06:23)
[2017-01-13 06:57] LABS: BUN/CREATININE RATIO 29.3 (10-20); CALCIUM 8.1 mg/dl (8.5-10.1); CARBON DIOXIDE 24 mmol/L (21-32); CHLORIDE 115 mmol/L (98-107); GLUCOSE 74 mg/dl (70-99); POTASSIUM 3.6 mmol/L (3.5-5.1); SODIUM 144 mmol/L (136-145)
[2017-01-13 07:09] LABS: BLOOD UREA NITROGEN 15 mg/dl (7-18)
[2017-01-13] MEDS: ENOXAPARIN 40 MG/0.4 ML SYR SC SCH (08:33)
[2017-01-13] MEDS: DULOXETINE (CYMBALTA) 30 MG CAP PO SCH (08:34)
[2017-01-13] MEDS: ASPIRIN 81 MG ECTAB PO SCH (08:34)
[2017-01-13] MEDS: THIAMINE HCL 100 MG TAB PO SCH (08:34)
[2017-01-13] MEDS: NAPROXEN 250 MG TAB PO SCH ×2 (08:34→20:56)
[2017-01-13] MEDS: TAMSULOSIN HCL 0.4 MG CAP PO SCH (08:34)
[2017-01-13] MEDS: LORATADINE 10 MG TAB PO SCH (08:35)
[2017-01-13] MEDS: LEVETIRACETAM 500 MG TAB PO SCH ×2 (08:35→20:57)
[2017-01-13] MEDS: PANTOprazole SOD 40 MG TAB PO SCH (08:35)
[2017-01-13] MEDS: POLYETHYLENE (MIRALAX) 17 GM PACK PO SCH (08:35)
[2017-01-13] MEDS: FLUTICASONE/SALMETEROL (ADVAIR) 500/50 INH 14 PUFF INH SCH ×2 (08:35→20:49)
[2017-01-13] MEDS: MULTIVITAMIN TAB PO SCH (08:35)
[2017-01-13] MEDS: METOPROLOL TARTRATE 25 MG TAB PO SCH ×2 (08:35→20:54)
[2017-01-13] MEDS: NICOTINE 21 MG/24 HR TDSY TD SCH (08:36)
--- NOTE | 2017-01-13 09:14 | Progress Note ---
Internal Med Progress Note Date of Service: Jan 13, 2017. Provider Documentation: SUBJECTIVE: Seen and examined at bedside. Subjectively feels still has intermittent left UE numbness Weakness improved per patient No other complaints Difficult to obtain history secondary to Aphasia No family at bedside OBJECTIVE: Vital Signs-as noted below Physical Exam: General Appearance:Moderately built and nourished, no apparent distress Head: normocephalic, Atraumatic, Aphasia Eyes: normal inspection, anicteric Neck: supple, Trachea midline Respiratory/Chest: Normal breath sounds, CTA Cardiovascular: S1, S2, + murmur Abdomen/GI:Soft, Non tender, Bowel sounds present Extremities/Musculoskelatal:normal inspection, no edema Neurologic/Psych: Facial palsy, Chronic R sided weakness UR>LE and some Right sided weakness Skin: normal color, warm Lab data as noted below. 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 No acute intracranial abnormality Appreciate Neurology Input PT/OT: recommends rehab Continue ASA, not on statins at home lipid panel:wnl Continue Keppra, levels:pending carotid USD: No significant carotid stenosis Neuro checks B12 levels, TSH:wnl Lyme: negative PRP:Non reactive Thiamine levels:pending MRI Brain:no intracranial abnormality MRI Spine: No significant pathology Requires Rehab placement Ambulatory dysfunction H/O multiple falls lately per her friend High risk for fall Refuses rehab placement Now cooperative with PT/OT Discussed in detail with patient and significant other regarding risks of fall and other complications as she has been not able to manage at home herself Could not assess her understanding of the situation as difficult to obtain information given her aphasia. Off note: Discusses with her friend about having alcohol in lesser quantities once she gets discharged Appreciate Psychiatry Input Patient is not safe to be discharged home as patient is physically decompensated and as per Psych: "The primary team is recommending inpatient rehabilitation, and at this time, the patient lacks capacity to refuse this recommendation, as she is unable to demonstrate an understanding of the risks of refusing the recommended treatment or to reason about appropriate treatment options. An alternate decision maker should be assigned for placement purposes. " Hypertension: stable Continue current meds Tobacco/alcohol abuse: Continue alcohol withdrawal protocol Banana bag Nicotine patch Fibromyalgia: Stable Mildly elevated D-dimer: V/Q scan:Low probability of pulmonary embolus Venous Doppler: No DVT Hypothyroidism: Continue Levothyroxine DVT Px: Lovenox subQ. Code Status: Full code Disposition: Monitor in tele PT/OT recommends Rehab Plan to discharge to Rehab facility PROCEDURES: CT Head: Old left MCA territory infarct is again noted. No acute intracranial abnormality MRI Brain: 1. Chronic left MCA territory infarct. 2. No acute intracranial abnormality. No abnormal enhancement. Carotid Doppler: No evidence of hemodynamically significant carotid stenosis. ECHO: * Sinus tachycardia is present on the echocardiogram. * No regional wall motion abnormalities noted. * The left ventricle is hyperdynamic. * Ejection Fraction = >70 %. * The right ventricle is normal in size and function. * There is a bioprosthetic aortic valve. * There is no significant aortic regurgitation. * Aortic stenosis is absent. * There is no evidence of valvular vegetation within the limits of this imaging modality. If clinical suspician for valvular vegetation exists, consider BENNY. Vital Signs: Date Time Temp Pulse Resp B/P (MAP) Pulse Ox O2 Delivery O2 Flow Rate FiO2 01/13/17 08:10 36.7 80 18 114/74 (87) 97 Room Air 01/13/17 08:00 95 Room Air 01/13/17 04:00 95 Room Air 01/13/17 00:00 95 Room Air 01/12/17 23:14 36.6 98 18 101/69 (80) 98 Room Air 01/12/17 20:51 110 115/68 (84) 01/12/17 20:00 96 Room Air 01/12/17 20:00 36.9 102 20 131/96 (108) 96 Room Air 01/12/17 16:07 36.9 88 16 99/69 (79) 96 Room Air 01/12/17 16:00 95 Room Air 01/12/17 12:21 36.3 96 18 116/82 (93) 97 Room Air 01/12/17 12:00 95 Room Air Lab Results: Results Past 24 Hours Test 01/13/17 06:16 Range/Units Sodium Level 144 136-145 mmol/L Potassium Level 3.6 3.5-5.1 mmol/L Chloride Level 115 98-107 mmol/L Carbon Dioxide Level 24 21-32 mmol/L Anion Gap 5.0 3-11 mmol/L Blood Urea Nitrogen 15 7-18 mg/dl Creatinine 0.50 0.60-1.20 mg/dl Est Creatinine Clear Calc Drug Dose 163.5 ml/min Estimated GFR () > 150.0 Estimated GFR (Non- 131.7 BUN/Creatinine Ratio 29.3 10-20 Random Glucose 74 70-99 mg/dl Calcium Level 8.1 8.5-10.1 mg/dl
[2017-01-13] MEDS: KETOROLAC TROMETHAMINE 30 MG/ML VIAL IV PRN ×3 (09:58→22:19)
--- NOTE | 2017-01-13 17:55 | PROGRESS NOTE ---
DATE: 01/13/2017 I am seeing Alla, a 26-year-old woman with a chronic left MCA territory infarct and a history of a seizure disorder after this event, who presented with left-sided numbness of intermittent type for the past several weeks. She apparently has been having issues at home with falling and has been drinking significant amounts of alcohol and the cause of her falls is not clear. She has had a whole series of imaging, studies of her brain, cervical, thoracic and lumbar spines. None of which show anything other than the old infarction and at this point, we are waiting for Keppra levels even though she has not had any seizure activity. There is some question whether this is an alcohol related neuropathy, although the picture is certainly odd on exam and by history unless she is unaware of any right-sided numbness because of her prior infarct. At this point all I see is the expressive aphasia, congenital nystagmus, flattened right nasolabial fold, zero strength in the right arm, modest weakness of the right leg and pretty normal examinations of the left face, arm and leg except for her complaints of "numbness." She is being assessed by social service currently. I am not sure neurology has a whole lot more to offer. We will ait for the Keppra level to come back to be sure it is in the therapeutic range and I suppose that on an outpatient basis, we could do nerve conduction study and EMG of the left arm and left leg to see if there is evidence for polyneuropathy or something like a carpal tunnel syndrome. None of this can be done on an inpatient basis nor does it need to be. I will check back with her tomorrow, but for now, I would have no further suggestions. JESSEE
[2017-01-13] MEDS: ACETAMINOPHEN 325 MG TAB PO PRN (20:05)
[2017-01-13] MEDS: DULOXETINE HCL 60 MG CAP PO SCH (20:51)
[2017-01-13] MEDS: MONTELUKAST SOD 10 MG TAB PO SCH (20:56)
[2017-01-13] MEDS: QUETIAPINE FUMARATE 25 MG TAB PO SCH (20:57)
[2017-01-13] MEDS: BACLOFEN 10 MG TAB PO PRN (21:17)
[2017-01-14] VITALS: O2SAT 96
[2017-01-14] MEDS: GABAPENTIN 1200MG LOADING DOSE PO SCH (04:51)
[2017-01-14] MEDS: LEVOTHYROXINE 100 MCG TAB PO SCH (06:13)
[2017-01-14 07:13] VITALS: BP 119/84; PULSE 75; TEMP 36.7; O2SAT 93
[2017-01-14 09:01] VITALS: BP 132/87; PULSE 72
[2017-01-14] MEDS: FLUTICASONE/SALMETEROL (ADVAIR) 500/50 INH 14 PUFF INH SCH ×2 (09:02→21:11)
[2017-01-14] MEDS: POLYETHYLENE (MIRALAX) 17 GM PACK PO SCH (09:03)
[2017-01-14] MEDS: NICOTINE 21 MG/24 HR TDSY TD SCH (09:04)
[2017-01-14] MEDS: THIAMINE HCL 100 MG TAB PO SCH (09:05)
[2017-01-14] MEDS: ENOXAPARIN 40 MG/0.4 ML SYR SC SCH (09:05)
[2017-01-14] MEDS: NAPROXEN 250 MG TAB PO SCH ×2 (09:06→21:14)
[2017-01-14] MEDS: LORATADINE 10 MG TAB PO SCH (09:06)
[2017-01-14] MEDS: DULOXETINE (CYMBALTA) 30 MG CAP PO SCH (09:06)
[2017-01-14] MEDS: ASPIRIN 81 MG ECTAB PO SCH (09:06)
[2017-01-14] MEDS: PANTOprazole SOD 40 MG TAB PO SCH (09:06)
[2017-01-14] MEDS: MULTIVITAMIN TAB PO SCH (09:07)
[2017-01-14] MEDS: TAMSULOSIN HCL 0.4 MG CAP PO SCH (09:07)
[2017-01-14] MEDS: METOPROLOL TARTRATE 25 MG TAB PO SCH ×2 (09:07→21:19)
[2017-01-14] MEDS: LEVETIRACETAM 500 MG TAB PO SCH ×2 (09:07→21:15)
[2017-01-14] MEDS ORDERED: NURSING VERBAL MED ORDER ONE (10:00)
[2017-01-14] MEDS: KETOROLAC TROMETHAMINE 30 MG/ML VIAL IV. PRN ×3 (10:25→22:19)
--- NOTE | 2017-01-14 13:26 | Progress Note ---
Internal Med Progress Note Date of Service: Jan 14, 2017. Provider Documentation: SUBJECTIVE: The patient was seen and examined Persisting Numbness of the left sided extremities associated with some pain Denies any other symptoms OBJECTIVE: Vital Signs-as noted below Exam: General-No distress at rest Eyes-normal ENT-Normal Neck-Supple Lungs-Clear to ausucltate bilaterally Heart-Regular,prosthetic sound Abdomen-Benign,no masses,bowel sound present Extremities-1 + Edema bilateral lower extremities Neuro-AA Dysphasia from past stroke with Right Hemiplegia ,UE >>>>lower extremity Early flexion deformity right hand Left sided extremities:: power-OK Lab data as noted below. CT Head: Old left MCA territory infarct is again noted. No acute intracranial abnormality MRI Brain: 1. Chronic left MCA territory infarct. 2. No acute intracranial abnormality. No abnormal enhancement. Carotid Doppler: No evidence of hemodynamically significant carotid stenosis. ECHO: * Sinus tachycardia is present on the echocardiogram. * No regional wall motion abnormalities noted. * The left ventricle is hyperdynamic. * Ejection Fraction = >70 %. * The right ventricle is normal in size and function. * There is a bioprosthetic aortic valve. * There is no significant aortic regurgitation. * Aortic stenosis is absent. * There is no evidence of valvular vegetation within the limits of this imaging modality. If clinical suspician for valvular vegetation exists, consider BENNY. 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 No acute intracranial abnormality Appreciate Neurology Input Continue ASA, not on statins at home Carotid USD: No significant carotid stenosis B12 levels, TSH:wnl,Lyme: negative,PRP:Non reactive Thiamine levels:pending MRI Brain:no intracranial abnormality MRI Spine: No significant pathology PT/OT: recommends rehab Requires Rehab placement Ambulatory dysfunction:secondary to Stroke H/O multiple falls lately per her friend High risk for fall Refuses rehab placement in past Now cooperative with PT/OT Discussed in detail with patient and significant other regarding risks of fall and other complications as she has been not able to manage at home herself Off note: Discusses with her friend about having alcohol in lesser quantities once she gets discharged Appreciate Psychiatry Input Patient is not safe to be discharged home as patient is physically decompensated and as per Psych: "The primary team is recommending inpatient rehabilitation, and at this time, the patient lacks capacity to refuse this recommendation, as she is unable to demonstrate an understanding of the risks of refusing the recommended treatment or to reason about appropriate treatment options. An alternate decision maker should be assigned for placement purposes. " Agreeable to go to Rehab Hypertension: Stable Continue current meds Tobacco/alcohol abuse: Continue alcohol withdrawal protocol Banana bag Nicotine patch Fibromyalgia: Stable Mildly elevated D-dimer: V/Q scan:Low probability of pulmonary embolus Venous Doppler: No DVT Hypothyroidism: Continue Levothyroxine DVT Px: Lovenox subQ. Code Status: Full code Disposition: Monitor in tele PT/OT recommends Rehab Plan to discharge to Rehab facility Vital Signs: Date Time Temp Pulse Resp B/P (MAP) Pulse Ox O2 Delivery O2 Flow Rate FiO2 01/14/17 09:01 72 132/87 (102) 01/14/17 08:00 Room Air 01/14/17 07:13 36.7 75 20 119/84 (96) 93 Room Air 01/14/17 00:00 96 Room Air 01/13/17 23:00 36.7 93 20 126/95 (105) 97 Room Air 01/13/17 21:19 96 Room Air 01/13/17 16:00 96 Room Air 01/13/17 15:05 36.8 84 20 109/76 (87) 99 Room Air
--- NOTE | 2017-01-14 15:40 | PROGRESS NOTE ---
DATE: 01/14/2017 DATE: 01/14/2017 Alla looks largely the same today. Her aphasia really interferes with conversation, but she was able to express her thoughts and mentioned going to rehabilitation by writing it one of her magic slates. She still complains of numbness in the left hand and leg. Workup has revealed no evidence for new lesions involving the brain, cervical, thoracic or lumbar spinal cords and the exam really is not very helpful. Unfortunately, with her language disturbance in the right hemiparesis it is very difficult to state that she does not have an element of polyneuropathy affecting the left arm and leg but because of the old hemispheric stroke producing no symptoms on the right. It looks as though she may be going off to [facility]. I think this is a good idea as her social situation is at best tenuous and at some point in the future when she follows up with Dr. Winslow she might consider doing an EMG left arm and left leg. The Keppra level is finally back, it is 15, which at her current dose is well within the accepted range and no seizure activity has been reported. At this point, then I think neurology is going to sign off the case. We are really not adding anything of value and certainly can not do any electrodiagnostic studies here in the hospital due to the absence of an EMG machine and this would be best performed on an outpatient basis anywhere.
[2017-01-14 15:49] VITALS: BP 130/86; PULSE 86
[2017-01-14] MEDS: ACETAMINOPHEN 325 MG TAB PO PRN (20:06)
[2017-01-14] MEDS: QUETIAPINE FUMARATE 25 MG TAB PO SCH (21:12)
[2017-01-14] MEDS: MONTELUKAST SOD 10 MG TAB PO SCH (21:13)
[2017-01-14] MEDS: DULOXETINE HCL 60 MG CAP PO SCH (21:15)
[2017-01-14 21:18] VITALS: BP 109/76; PULSE 91
[2017-01-14] MEDS: BACLOFEN 10 MG TAB PO PRN (22:18)
[2017-01-14 23:35] VITALS: BP 128/95; PULSE 88; TEMP 36.8; O2SAT 96
[2017-01-15] MEDS: KETOROLAC TROMETHAMINE 30 MG/ML VIAL IV. PRN ×3 (04:41→18:22)
[2017-01-15] MEDS: LEVOTHYROXINE 100 MCG TAB PO SCH (04:41)
[2017-01-15] MEDS: GABAPENTIN 1200MG LOADING DOSE PO SCH (04:41)
[2017-01-15 06:51] LABS: BASO % 0.3 %; BASO ABS # 0.01 K/uL (0-0.2); COMPLETE YES; EOS % 6.8 %; HEMATOCRIT 28.9 % (37-47); IG% 0.3 %; LYMPH % 42.7 %; LYMPH ABS # 1.58 K/uL (1.2-3.4); MEAN CELL VOLUME 102.8 fL (80-100); MEAN CORPUSCULAR HEMOGLOBIN 33.8 pg (25-34); MEAN CORPUSCULAR HGB CONC 32.9 g/dl (32-36); MEAN PLATELET VOLUME 9.3 fL (7.4-10.4); MONO % 8.6 %; NEUT % 41.3 %; PLATELET COUNT 225 K/uL (130-400); RED BLOOD COUNT 2.81 M/uL (4.2-5.4)
[2017-01-15 07:01] VITALS: BP 115/82; PULSE 79; TEMP 36.9; O2SAT 97
[2017-01-15 07:29] LABS: BLOOD UREA NITROGEN 13 mg/dl (7-18); BUN/CREATININE RATIO 36.9 (10-20); CALCIUM 8.2 mg/dl (8.5-10.1); CARBON DIOXIDE 24 mmol/L (21-32); CHLORIDE 113 mmol/L (98-107); CREATININE 0.35 mg/dl (0.60-1.20); GLUCOSE 80 mg/dl (70-99); POTASSIUM 3.5 mmol/L (3.5-5.1); SODIUM 143 mmol/L (136-145)
[2017-01-15] MEDS: POLYETHYLENE (MIRALAX) 17 GM PACK PO SCH ×2 (09:00→09:52)
[2017-01-15] MEDS: ASPIRIN 81 MG ECTAB PO SCH (09:49)
[2017-01-15] MEDS: NAPROXEN 250 MG TAB PO SCH ×2 (09:49→21:24)
[2017-01-15] MEDS: MULTIVITAMIN TAB PO SCH (09:49)
[2017-01-15] MEDS: PANTOprazole SOD 40 MG TAB PO SCH (09:49)
[2017-01-15] MEDS: METOPROLOL TARTRATE 25 MG TAB PO SCH ×2 (09:50→21:23)
[2017-01-15] MEDS: DULOXETINE (CYMBALTA) 30 MG CAP PO SCH (09:50)
[2017-01-15] MEDS: THIAMINE HCL 100 MG TAB PO SCH (09:50)
[2017-01-15] MEDS: LORATADINE 10 MG TAB PO SCH (09:50)
[2017-01-15] MEDS: TAMSULOSIN HCL 0.4 MG CAP PO SCH (09:50)
[2017-01-15] MEDS: FLUTICASONE/SALMETEROL (ADVAIR) 500/50 INH 14 PUFF INH SCH ×2 (09:51→21:13)
[2017-01-15] MEDS: LEVETIRACETAM 500 MG TAB PO SCH ×2 (09:51→21:23)
[2017-01-15] MEDS: NICOTINE 21 MG/24 HR TDSY TD SCH (09:52)
[2017-01-15] MEDS: ENOXAPARIN 40 MG/0.4 ML SYR SC SCH (09:52)
--- NOTE | 2017-01-15 14:05 | Progress Note ---
Internal Med Progress Note Date of Service: Jan 15, 2017. Provider Documentation: SUBJECTIVE: The patient was seen and examined Persisting Numbness of the left sided extremities associated with some pain Denies any other symptoms Remains stable OBJECTIVE: Vital Signs-as noted below Exam: General-No distress at rest,sitting on the edge of the bed and drinking coffee Eyes-normal ENT-Normal Neck-Supple Lungs-Clear to ausucltate bilaterally Heart-Regular,prosthetic sound Abdomen-Benign,no masses,bowel sound present Extremities-1 + Edema bilateral lower extremities Neuro-AA Dysphasia from past stroke with Right Hemiplegia ,UE >>>>lower extremity Early flexion deformity right hand Left sided extremities:: power-OK and sensation -OK Lab data as noted below. CT Head: Old left MCA territory infarct is again noted. No acute intracranial abnormality MRI Brain: 1. Chronic left MCA territory infarct. 2. No acute intracranial abnormality. No abnormal enhancement. Carotid Doppler: No evidence of hemodynamically significant carotid stenosis. ECHO: * Sinus tachycardia is present on the echocardiogram. * No regional wall motion abnormalities noted. * The left ventricle is hyperdynamic. * Ejection Fraction = >70 %. * The right ventricle is normal in size and function. * There is a bioprosthetic aortic valve. * There is no significant aortic regurgitation. * Aortic stenosis is absent. * There is no evidence of valvular vegetation within the limits of this imaging modality. If clinical suspician for valvular vegetation exists, consider BENNY. 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 No acute intracranial abnormality Appreciate Neurology Input Continue ASA, not on statins at home Carotid USD: No significant carotid stenosis B12 levels, TSH:wnl,Lyme: negative,PRP:Non reactive Thiamine levels:pending MRI Brain:no intracranial abnormality MRI Spine: No significant pathology PT/OT: recommends rehab Stressed again today the need for Rehab Ambulatory dysfunction:secondary to Stroke H/O multiple falls lately per her friend High risk for fall Refuses rehab placement in past Now cooperative with PT/OT Discussed in detail with patient and significant other regarding risks of fall and other complications as she has been not able to manage at home herself Off note: Discusses with her friend about having alcohol in lesser quantities once she gets discharged Appreciate Psychiatry Input Patient is not safe to be discharged home as patient is physically decompensated and as per Psych: "The primary team is recommending inpatient rehabilitation, and at this time, the patient lacks capacity to refuse this recommendation, as she is unable to demonstrate an understanding of the risks of refusing the recommended treatment or to reason about appropriate treatment options. An alternate decision maker should be assigned for placement purposes. " Agreeable to go to Rehab and waiting for placement Hypertension: Stable Continue current meds Tobacco/alcohol abuse: Continue alcohol withdrawal protocol Banana bag Nicotine patch Fibromyalgia: Stable Denies any pain Mildly elevated D-dimer: V/Q scan:Low probability of pulmonary embolus Venous Doppler: No DVT Hypothyroidism: Continue Levothyroxine DVT Px: Lovenox subQ. Code Status: Full code Disposition: Monitor in tele PT/OT recommends Rehab Plan to discharge to Rehab facility when bed is available Vital Signs: Date Time Temp Pulse Resp B/P (MAP) Pulse Ox O2 Delivery O2 Flow Rate FiO2 01/15/17 09:30 Room Air 01/15/17 07:01 36.9 79 18 115/82 (93) 97 Room Air 01/15/17 00:00 Room Air 01/14/17 23:35 36.8 88 16 128/95 (106) 96 Room Air 01/14/17 21:18 91 109/76 (87) 01/14/17 20:00 Room Air 01/14/17 16:00 Room Air 01/14/17 15:49 86 20 130/86 (101) Lab Results: Results Past 24 Hours Test 01/15/17 06:38 Range/Units White Blood Count 3.70 4.8-10.8 K/uL Red Blood Count 2.81 4.2-5.4 M/uL Hemoglobin 9.5 12.0-16.0 g/dL Hematocrit 28.9 37-47 % Mean Corpuscular Volume 102.8 80-100 fL Mean Corpuscular Hemoglobin 33.8 25-34 pg Mean Corpuscular Hemoglobin Concent 32.9 32-36 g/dl Platelet Count 225 130-400 K/uL Mean Platelet Volume 9.3 7.4-10.4 fL Neutrophils (%) (Auto) 41.3 % Lymphocytes (%) (Auto) 42.7 % Monocytes (%) (Auto) 8.6 % Eosinophils (%) (Auto) 6.8 % Basophils (%) (Auto) 0.3 % Neutrophils # (Auto) 1.53 1.4-6.5 K/uL Lymphocytes # (Auto) 1.58 1.2-3.4 K/uL Monocytes # (Auto) 0.32 0.11-0.59 K/uL Eosinophils # (Auto) 0.25 0-0.5 K/uL Basophils # (Auto) 0.01 0-0.2 K/uL RDW Standard Deviation 54.4 36.4-46.3 fL RDW Coefficient of Variation 14.4 11.5-14.5 % Immature Granulocyte % (Auto) 0.3 % Immature Granulocyte # (Auto) 0.01 0.00-0.02 K/uL Sodium Level 143 136-145 mmol/L Potassium Level 3.5 3.5-5.1 mmol/L Chloride Level 113 98-107 mmol/L Carbon Dioxide Level 24 21-32 mmol/L Anion Gap 6.0 3-11 mmol/L Blood Urea Nitrogen 13 7-18 mg/dl Creatinine 0.35 0.60-1.20 mg/dl Est Creatinine Clear Calc Drug Dose 233.8 ml/min Estimated GFR () > 150.0 Estimated GFR (Non- 148.1 BUN/Creatinine Ratio 36.9 10-20 Random Glucose 80 70-99 mg/dl Calcium Level 8.2 8.5-10.1 mg/dl
[2017-01-15] MEDS: ACETAMINOPHEN 325 MG TAB PO PRN ×2 (15:40→22:16)
[2017-01-15 16:03] VITALS: BP 102/69; PULSE 82; TEMP 37.1; O2SAT 98
[2017-01-15] MEDS: BACLOFEN 10 MG TAB PO PRN (21:22)
[2017-01-15] MEDS: DULOXETINE HCL 60 MG CAP PO SCH (21:23)
[2017-01-15] MEDS: MONTELUKAST SOD 10 MG TAB PO SCH (21:24)
[2017-01-15] MEDS: QUETIAPINE FUMARATE 25 MG TAB PO SCH (21:24)
[2017-01-15 23:36] VITALS: BP 105/73; PULSE 87; TEMP 36.8; O2SAT 96
[2017-01-16] MEDS: KETOROLAC TROMETHAMINE 30 MG/ML VIAL IV. PRN ×4 (00:25→22:08)
[2017-01-16] MEDS: GABAPENTIN 1200MG LOADING DOSE PO SCH (03:00)
[2017-01-16] MEDS: LEVOTHYROXINE 100 MCG TAB PO SCH (06:17)
[2017-01-16 07:03] VITALS: BP 114/82; PULSE 76; TEMP 36.7; O2SAT 97
[2017-01-16] MEDS: POLYETHYLENE (MIRALAX) 17 GM PACK PO SCH (09:00)
[2017-01-16] MEDS: PANTOprazole SOD 40 MG TAB PO SCH (09:40)
[2017-01-16] MEDS: ASPIRIN 81 MG ECTAB PO SCH (09:40)
[2017-01-16] MEDS: THIAMINE HCL 100 MG TAB PO SCH (09:40)
[2017-01-16] MEDS: LORATADINE 10 MG TAB PO SCH (09:41)
[2017-01-16] MEDS: NICOTINE 21 MG/24 HR TDSY TD SCH (09:41)
[2017-01-16] MEDS: FLUTICASONE/SALMETEROL (ADVAIR) 500/50 INH 14 PUFF INH SCH ×2 (09:42→20:51)
[2017-01-16] MEDS: DULOXETINE (CYMBALTA) 30 MG CAP PO SCH (09:42)
[2017-01-16] MEDS: NAPROXEN 250 MG TAB PO SCH ×2 (09:43→20:54)
[2017-01-16] MEDS: TAMSULOSIN HCL 0.4 MG CAP PO SCH (09:44)
[2017-01-16] MEDS: LEVETIRACETAM 500 MG TAB PO SCH ×2 (09:44→20:52)
[2017-01-16] MEDS: MULTIVITAMIN TAB PO SCH (09:44)
[2017-01-16] MEDS: METOPROLOL TARTRATE 25 MG TAB PO SCH ×2 (09:44→20:51)
[2017-01-16] MEDS: ENOXAPARIN 40 MG/0.4 ML SYR SC SCH (09:45)
[2017-01-16] MEDS: ACETAMINOPHEN 325 MG TAB PO PRN ×2 (14:30→21:00)
--- NOTE | 2017-01-16 14:34 | Progress Note ---
Internal Med Progress Note Date of Service: Jan 16, 2017. Provider Documentation: SUBJECTIVE: The patient was seen and examined Persisting Numbness of the left sided extremities associated with some pain Denies any other symptoms Remains stable and no new symptoms OBJECTIVE: Vital Signs-as noted below Exam: General-No distress at rest,sitting on the edge of the bed and drinking coffee Eyes-normal ENT-Normal Neck-Supple Lungs-Clear to ausucltate bilaterally Heart-Regular,prosthetic sound Abdomen-Benign,no masses,bowel sound present Extremities-1 + Edema bilateral lower extremities Neuro-AA Dysphasia from past stroke with Right Hemiplegia ,UE >>>>lower extremity Early flexion deformity right hand Left sided extremities:: power-OK and sensation -OK Lab data as noted below. CT Head: Old left MCA territory infarct is again noted. No acute intracranial abnormality MRI Brain: 1. Chronic left MCA territory infarct. 2. No acute intracranial abnormality. No abnormal enhancement. Carotid Doppler: No evidence of hemodynamically significant carotid stenosis. ECHO: * Sinus tachycardia is present on the echocardiogram. * No regional wall motion abnormalities noted. * The left ventricle is hyperdynamic. * Ejection Fraction = >70 %. * The right ventricle is normal in size and function. * There is a bioprosthetic aortic valve. * There is no significant aortic regurgitation. * Aortic stenosis is absent. * There is no evidence of valvular vegetation within the limits of this imaging modality. If clinical suspician for valvular vegetation exists, consider BENNY. 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 No acute intracranial abnormality Appreciate Neurology Input Continue ASA, not on statins at home Carotid USD: No significant carotid stenosis B12 levels, TSH:wnl,Lyme: negative,PRP:Non reactive Thiamine levels:pending MRI Brain:no intracranial abnormality MRI Spine: No significant pathology PT/OT: recommends rehab Stressed again today the need for Rehab Awaiting rehab placement Ambulatory dysfunction:secondary to Stroke H/O multiple falls lately per her friend High risk for fall Refuses rehab placement in past Now cooperative with PT/OT Discussed in detail with patient and significant other regarding risks of fall and other complications as she has been not able to manage at home herself Off note: Discusses with her friend about having alcohol in lesser quantities once she gets discharged Appreciate Psychiatry Input Patient is not safe to be discharged home as patient is physically decompensated and as per Psych: "The primary team is recommending inpatient rehabilitation, and at this time, the patient lacks capacity to refuse this recommendation, as she is unable to demonstrate an understanding of the risks of refusing the recommended treatment or to reason about appropriate treatment options. An alternate decision maker should be assigned for placement purposes. " Agreeable to go to Rehab and waiting for placement Hypertension: Stable Continue current meds Tobacco/alcohol abuse: Continue alcohol withdrawal protocol Banana bag Nicotine patch Fibromyalgia: Stable Denies any pain Mildly elevated D-dimer: V/Q scan:Low probability of pulmonary embolus Venous Doppler: No DVT Hypothyroidism: Continue Levothyroxine DVT Px: Lovenox subQ. Code Status: Full code Disposition: Monitor in tele PT/OT recommends Rehab Plan to discharge to Rehab facility when bed is available Vital Signs: Date Time Temp Pulse Resp B/P (MAP) Pulse Ox O2 Delivery O2 Flow Rate FiO2 01/16/17 09:00 Room Air 01/16/17 07:03 36.7 76 18 114/82 (93) 97 Room Air 01/16/17 00:00 Room Air 01/15/17 23:36 36.8 87 18 105/73 (84) 96 Room Air 01/15/17 20:00 Room Air 01/15/17 16:03 37.1 82 18 102/69 (80) 98 Room Air 01/15/17 16:00 Room Air
[2017-01-16 15:38] VITALS: BP 105/70; PULSE 89; TEMP 36.7; O2SAT 95
[2017-01-16] MEDS ORDERED: [UNRECOGNIZED DRUG - OTHER] SCH (16:00)
[2017-01-16 19:39] VITALS: BP 108/81; PULSE 103; TEMP 36.8; O2SAT 96
[2017-01-16] MEDS: MONTELUKAST SOD 10 MG TAB PO SCH (20:52)
[2017-01-16] MEDS: DULOXETINE HCL 60 MG CAP PO SCH (20:53)
[2017-01-16] MEDS: QUETIAPINE FUMARATE 25 MG TAB PO SCH (20:54)
[2017-01-17] VITALS: BP 99/67; PULSE 77; TEMP 36.9; O2SAT 95
[2017-01-17] MEDS: GABAPENTIN 1200MG LOADING DOSE PO SCH (02:30)
[2017-01-17] MEDS: LEVOTHYROXINE 100 MCG TAB PO SCH (06:10)
[2017-01-17] MEDS: KETOROLAC TROMETHAMINE 30 MG/ML VIAL IV. PRN ×3 (06:11→17:29)
[2017-01-17 07:27] LABS: MEAN CORPUSCULAR HEMOGLOBIN 31.9 pg (25-34); MEAN CORPUSCULAR HGB CONC 30.6 g/dl (32-36); MEAN PLATELET VOLUME 9.1 fL (7.4-10.4); PLATELET COUNT 296 K/uL (130-400); RED BLOOD COUNT 2.98 M/uL (4.2-5.4); WHITE BLOOD COUNT 3.48 K/uL (4.8-10.8)
[2017-01-17 07:42] VITALS: BP 133/67; PULSE 76; TEMP 36.9; O2SAT 97
[2017-01-17 07:58] LABS: BLOOD UREA NITROGEN 15 mg/dl (7-18); BUN/CREATININE RATIO 39.5 (10-20); CALCIUM 8.5 mg/dl (8.5-10.1); CARBON DIOXIDE 25 mmol/L (21-32); CHLORIDE 114 mmol/L (98-107); CREATININE 0.37 mg/dl (0.60-1.20); GLUCOSE 76 mg/dl (70-99); MAGNESIUM 1.9 mg/dl (1.8-2.4); PHOSPHORUS 4.3 mg/dl (2.5-4.9); POTASSIUM 3.5 mmol/L (3.5-5.1); SODIUM 144 mmol/L (136-145)
[2017-01-17] MEDS: DULOXETINE (CYMBALTA) 30 MG CAP PO SCH (08:30)
[2017-01-17] MEDS: NICOTINE 21 MG/24 HR TDSY TD SCH (08:30)
[2017-01-17] MEDS: ENOXAPARIN 40 MG/0.4 ML SYR SC SCH (08:30)
[2017-01-17] MEDS: LEVETIRACETAM 500 MG TAB PO SCH (08:31)
[2017-01-17] MEDS: MULTIVITAMIN TAB PO SCH (08:31)
[2017-01-17] MEDS: THIAMINE HCL 100 MG TAB PO SCH (08:31)
[2017-01-17] MEDS: METOPROLOL TARTRATE 25 MG TAB PO SCH (08:31)
[2017-01-17] MEDS: TAMSULOSIN HCL 0.4 MG CAP PO SCH (08:31)
[2017-01-17] MEDS: PANTOprazole SOD 40 MG TAB PO SCH (08:31)
[2017-01-17] MEDS: NAPROXEN 250 MG TAB PO SCH (08:31)
[2017-01-17] MEDS: ASPIRIN 81 MG ECTAB PO SCH (08:31)
[2017-01-17] MEDS: LORATADINE 10 MG TAB PO SCH (08:31)
[2017-01-17] MEDS: POLYETHYLENE (MIRALAX) 17 GM PACK PO SCH (08:32)
[2017-01-17] MEDS: FLUTICASONE/SALMETEROL (ADVAIR) 500/50 INH 14 PUFF INH SCH (08:32)
[2017-01-17] MEDS ORDERED: [UNRECOGNIZED DRUG - OTHER] PO SCH (09:00)
[2017-01-17] MEDS ORDERED: NORETHINDRONE 0.35 MG PO SCH (09:00)
[2017-01-17 15:02] VITALS: BP 133/67; PULSE 76; TEMP 36.9; O2SAT 97
[2017-01-17] MEDS: ACETAMINOPHEN 325 MG TAB PO PRN (15:12)
[2017-01-17] MEDS ORDERED: NURSING VERBAL MED ORDER ONE (15:30)
--- NOTE | 2017-01-17 15:42 | Progress Note ---
Internal Med Progress Note Date of Service: Jan 17, 2017. Provider Documentation: SUBJECTIVE: The patient was seen and examined Persisting Numbness of the left sided extremities associated with some pain Remains stable and no new symptoms Very anxious and does not want to go to [facility] Crying but agreeable to go to [facility] OBJECTIVE: Vital Signs-as noted below Exam: General-No distress at rest Anxious Eyes-normal ENT-Normal Neck-Supple Lungs-Clear to ausucltate bilaterally Heart-Regular,prosthetic sound Abdomen-Benign,no masses,bowel sound present Extremities-1 + Edema bilateral lower extremities Neuro-AA Dysphasia from past stroke with Right Hemiplegia ,UE >>>>lower extremity Early flexion deformity right hand Left sided extremities:: power-OK and sensation -OK Lab data as noted below. CT Head: Old left MCA territory infarct is again noted. No acute intracranial abnormality MRI Brain: 1. Chronic left MCA territory infarct. 2. No acute intracranial abnormality. No abnormal enhancement. Carotid Doppler: No evidence of hemodynamically significant carotid stenosis. ECHO: * Sinus tachycardia is present on the echocardiogram. * No regional wall motion abnormalities noted. * The left ventricle is hyperdynamic. * Ejection Fraction = >70 %. * The right ventricle is normal in size and function. * There is a bioprosthetic aortic valve. * There is no significant aortic regurgitation. * Aortic stenosis is absent. * There is no evidence of valvular vegetation within the limits of this imaging modality. If clinical suspician for valvular vegetation exists, consider BENNY. 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 No acute intracranial abnormality Appreciate Neurology Input Continue ASA, not on statins at home Carotid USD: No significant carotid stenosis B12 levels, TSH:wnl,Lyme: negative,PRP:Non reactive Thiamine levels:pending MRI Brain:no intracranial abnormality MRI Spine: No significant pathology PT/OT: recommends rehab Stressed again today the need for Rehab Stable except a lots of Anxiety Ambulatory dysfunction:secondary to Stroke H/O multiple falls lately per her friend High risk for fall Refuses rehab placement in past Now cooperative with PT/OT Discussed in detail with patient and significant other regarding risks of fall and other complications as she has been not able to manage at home herself Off note: Discusses with her friend about having alcohol in lesser quantities once she gets discharged Appreciate Psychiatry Input Patient is not safe to be discharged home as patient is physically decompensated and as per Psych: "The primary team is recommending inpatient rehabilitation, and at this time, the patient lacks capacity to refuse this recommendation, as she is unable to demonstrate an understanding of the risks of refusing the recommended treatment or to reason about appropriate treatment options. An alternate decision maker should be assigned for placement purposes. " Will discharge to [facility] Hypertension: Stable Continue current meds Tobacco/alcohol abuse: Continue alcohol withdrawal protocol Banana bag Nicotine patch Fibromyalgia: Stable Denies any pain now Mildly elevated D-dimer: V/Q scan:Low probability of pulmonary embolus Venous Doppler: No DVT Hypothyroidism: Continue Levothyroxine DVT Px: Lovenox subQ. Code Status: Full code Disposition: Monitor in tele PT/OT recommends Rehab Discharge to [facility] Vital Signs: Date Time Temp Pulse Resp B/P (MAP) Pulse Ox O2 Delivery O2 Flow Rate FiO2 01/17/17 15:02 36.9 76 16 97 Room Air 01/17/17 08:00 Room Air 01/17/17 07:42 36.9 76 16 133/67 (89) 97 Room Air 01/17/17 00:00 36.9 77 18 99/67 (78) 95 Room Air 01/17/17 00:00 Room Air 01/16/17 20:00 Room Air 01/16/17 19:39 36.8 103 16 108/81 (90) 96 Room Air 01/16/17 16:00 Room Air 01/16/17 15:38 36.7 89 16 105/70 (82) 95 Room Air Lab Results: Results Past 24 Hours Test 01/17/17 07:09 Range/Units White Blood Count 3.48 4.8-10.8 K/uL Red Blood Count 2.98 4.2-5.4 M/uL Hemoglobin 9.5 12.0-16.0 g/dL Hematocrit 31.0 37-47 % Mean Corpuscular Volume 104.0 80-100 fL Mean Corpuscular Hemoglobin 31.9 25-34 pg Mean Corpuscular Hemoglobin Concent 30.6 32-36 g/dl RDW Standard Deviation 54.4 36.4-46.3 fL RDW Coefficient of Variation 14.4 11.5-14.5 % Platelet Count 296 130-400 K/uL Mean Platelet Volume 9.1 7.4-10.4 fL Sodium Level 144 136-145 mmol/L Potassium Level 3.5 3.5-5.1 mmol/L Chloride Level 114 98-107 mmol/L Carbon Dioxide Level 25 21-32 mmol/L Anion Gap 5.0 3-11 mmol/L Blood Urea Nitrogen 15 7-18 mg/dl Creatinine 0.37 0.60-1.20 mg/dl Est Creatinine Clear Calc Drug Dose 221.1 ml/min Estimated GFR () > 150.0 Estimated GFR (Non- 145.4 BUN/Creatinine Ratio 39.5 10-20 Random Glucose 76 70-99 mg/dl Calcium Level 8.5 8.5-10.1 mg/dl Phosphorus Level 4.3 2.5-4.9 mg/dl Magnesium Level 1.9 1.8-2.4 mg/dl
[2017-01-17] MEDS ORDERED: LORAZEPAM 0.5 MG TAB PO PRN (15:45)
[2017-01-17] MEDS ORDERED: THM50 PO (16:09)
[2017-01-17] MEDS ORDERED: NRN100 PO (16:10)
[2017-01-17] MEDS ORDERED: NICO21DI4 TD (16:14)
--- NOTE | 2017-01-17 16:15 | Discharge Instructions ---
Discharge Instructions Date of Service Jan 17, 2017. Admission Reason for Admission: Right Sided Weakness Discharge Discharge Diagnosis / Problem: Left sided extremities numbness,Stroke with right Hemiplegia Discharge Goals Goal(s): Prevent Disease Progression Activity Recommendations Activity Level: Assistance Required Therapies: Physical Therapy, Occupational Therapy, Speech Therapy . Additional Information Patient informed of condition: Yes Advance Directives: No DNR: No Level of Care: Acute Rehab Communicable Disease: No Prognosis: Stable Oxygen at (LPM): 2 liters/min via NC as needed Sams Catheter: Yes (Try to discontinue in 3-5 days) Instructions / Follow-Up Instructions / Follow-Up Please make an appointment with your PCP in 1 week Current Hospital Diet Patient's current hospital diet: Regular Diet Discharge Diet Recommended Diet: Regular Diet Pending Studies Studies pending at discharge: no Physician Orders On Transfer Additional Orders: Please consider Lovenox or other form of Pharmacologic anticoagulation.Was on Lovenox 40mg SQ daily in hospital. POLST Discussion: Not Applicable Laboratory Results Lipid Panel Test 01/10/17 09:28 Range/Units Triglycerides Level 59 0-150 mg/dl Cholesterol Level 178 0-200 mg/dl HDL Cholesterol 71 mg/dl Cholesterol/HDL Ratio 2.5 LDL Cholesterol, Calculated 95 mg/dl Medical Emergencies . Who to Call and When: Medical Emergencies: If at any time you feel your situation is an emergency, please call 911 immediately. . Non-Emergent Contact Non-Emergency issues call your: Primary Care Provider . Past History Medical & Surgical History: (1) Asthma (2) Anxiety (3) Encephalopathy (4) GI bleed (5) Right sided weakness (6) Left sided numbness (7) Seizure disorder (8) CVA (cerebral vascular accident) . "Provider Documentation" section prepared by Sergey Cho. . Core Measure Problem Core Measures: None
--- NOTE | 2017-01-18 08:20 | Discharge Summary ---
Discharge Summary Date of Service Jan 18, 2017. Discharge Summary Admission Date: Jan 10, 2017 at 08:21 Discharge Date: Jan 17, 2017 Principal Diagnosis: Left sided extremities numbness,Stroke with right Hemiplegia Secondary Diagnoses/Problems: Please see H&P and Hospital Progress note Consultations: Neurology Medication Reconciliation New Medications: Gabapentin (Gabapentin) 100 Mg Cap 100 MG PO TID, #90 Thiamine HCl (Vitamin B-1) 50 Mg Tab 50 MG PO DAILY, #30 Nicotine (Nicoderm Cq) 21 Mg/24 Hr Dis 1 PATCH TD QAM for 30 Days, #30 Continued Medications: Albuterol Hfa (Ventolin Hfa) 200 Puffs/09933 Mcg Aers 2-4 PUFFS INH Q6H Albuterol Sulfate (Proair Respiclick) 108 Mcg/Act Aer 2 PUFFS INH Q6H PRN for Shortness of Breath Aspirin (Aspirin Ec) 81 Mg Tab 81 MG PO DAILY Baclofen (Baclofen) 10 Mg Tab 10 MG PO UD Buspirone Hcl (Buspirone Hcl) 5 Mg Tab 15 MG PO TID Diphenhydramine Hcl (Benadryl Allergy) 25 Mg Cap 1 CAP PO HS PRN for Itching Docusate Sodium (Colace) 100 Mg Cap 1 CAP PO BID PRN for Constipation Duloxetine HCl (Cymbalta) 60 Mg Cap 60 MG PO HS Duloxetine HCl (Cymbalta) 30 Mg Cap 1 CAP PO QAM Fluticasone Prop/Salmeterol (Advair Diskus 500/50 60 Dose) 1 Ea Aerp 1 PUFF INH BID, INHALER Folic Acid (Folvite) 1 Mg Tab 1 MG PO DAILY Levetiracetam (Keppra) 500 Mg Tab 500 MG PO BID, TAB Levothyroxine Sodium (Levothyroxine Sodium) 100 Mcg Inj 100 MCG PO DAILY Loratadine (Claritin) 10 Mg Tab 10 MG PO DAILY Melatonin (Melatonin Maximum Strengt) 5 Mg Tab 1 TAB PO HS Metoprolol Tartrate (Lopressor) (Lopressor) 25 Mg Tab 25 MG PO BID, TAB Montelukast Sodium (Singulair) 10 Mg Tab 10 MG PO HS, TAB Naproxen (Naprosyn) 500 Mg Tab 500 MG PO BID PRN for Pain or Fever, TAB Norethindrone (Contraceptive) (Addie-Be) 0.35 Mg Tab 1 TAB PO DAILY Omeprazole (Prilosec) 20 Mg Capcr 20 MG PO DAILY Ondansetron Hcl (Zofran) 4 Mg Tab 4 MG PO Q8 PRN for Nausea, TAB Polyethylene Glycol 3350 (Miralax) 1 Pow Pow 17 GM PO DAILY, #527 GM Potassium Chloride (Micro-K Ext Rel) 10 Meq Capcr 20 MEQ PO BID Promethazine Hcl (Phenergan) 25 Mg Tab 25 MG PO Q4H PRN for Nausea, TAB Quetiapine Fumarate (Seroquel) 25 Mg Tab 25 MG PO HS Tamsulosin Hcl (Flomax) 0.4 Mg Cap 0.4 MG PO DAILY, CAP [compound cream] () Admission Information HPI (per Admitting provider): DATE OF ADMISSION: 01/08/2017 PRIMARY CARE DOCTOR: Dr. Alexis. CHIEF COMPLAINT: Left-sided numbness. History obtained from patient, patient's friend, records, limited history obtained secondary to aphasia. HISTORY OF PRESENT ILLNESS: History obtained from the patient, patient's male friend, and records. History somewhat difficult obtaining patient secondary to chronic aphasia. 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 Patient noted to have a right hemiparesis at that time. Patient transferred to [facility]. Confined for about a month. 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 Subsequent discharge to [facility] then discharged home. Last month as per her partner the patient noted to be falling more than usual, complaining of numbness on the left side. Chest pain chronic from valve surgery. Some shortness of breath. No unusual cough symptoms. No headache. Seen at PCP's office. Patient directed to the Emergency Room. MEDICAL HISTORY: As above. SURGERIES: aortic valve replacement. HOME MEDICATIONS: Include Seroquel, Flomax, Ventolin, aspirin, ProAir, buspirone, baclofen, Benadryl, Colace, Cymbalta, Advair Diskus, Folvite, Keppra, levothyroxine, Claritin, Singulair, Lopressor, naproxen, Prilosec, OCP, Zofran, MiraLax, Micro-K, Phenergan. ALLERGIES: No known drug allergies. FAMILY HISTORY: Could not be obtained. PERSONAL AND SOCIAL HISTORY: Still smoking 1 to 1.5 packs daily. Daily alcohol intake as per friend. Lives alone with caregivers from time to time; close friend lives nearby REVIEW OF SYSTEMS: Could not be reliably obtained. PHYSICAL EXAMINATION: VITAL SIGNS: Blood pressure noted to be 100/66, pulse rate 108, RR 16, temperature 36.7, sats 98 on room air. SKIN: Normal color. GENERAL EXAMINATION: Noted to be coherent, aphasic. Obese. HEENT ; pink palpebral conjunctivae, dry mucosa, chronic right facial droop NECK: Short neck. LUNGS: Decreased effort. HEART: Tachycardic, systolic murmur. ABDOMEN: Some distension, nontender. EXTREMITIES: No edema, no tenderness. NEUROLOGIC: No gross focality except for chronic facial asymmetry right, MMTS R < L (chronic) LABORATORY DATA: Hemoglobin was noted to be 12.7, white cell count 5.7, platelets 281. Sodium noted to be 145, chloride 110, CO2 23, glucose was noted to be 99. trop 0, D-dimer was abnormal. CT of the head, old left MCA infarct. Knee x-ray no fracture. Chest x-ray, slight interstitial prominence left base. EKG as per my interpretation, rate 115, sinus tachycardia, some T-wave inversion and flattening in the anteroseptal leads . ASSESSMENT AND PLAN: 1. 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 Hypertension, stable 3. ongoing tobacco/alcohol abuse 4. Fibromyalgia as per records, 5. chest pain, shortness of breath rule out pulmonary embolism. 6. Seizure disorder stable on Keppra. Observation PCU, neuro checks. MRI of the brain. Neuropathy workup. TTE chest pain PE workup : VQ scan. Lower extremity Dopplers (Unable to obtain IV access for CT chest PE study as per RN) for PE workup. Further management pending workup results. DT precautions Nicotine patch PT OT eval DVT prophylaxis with Lovenox subQ. Full code Patient's friend requesting updates from providers. Mr. Davis Dean at [phone]. 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 No acute intracranial abnormality Appreciate Neurology Input Continue ASA, not on statins at home Carotid USD: No significant carotid stenosis B12 levels, TSH:wnl,Lyme: negative,PRP:Non reactive Thiamine levels:pending MRI Brain:no intracranial abnormality MRI Spine: No significant pathology PT/OT: recommends rehab Stressed again today the need for Rehab Stable except a lots of Anxiety Ambulatory dysfunction:secondary to Stroke H/O multiple falls lately per her friend High risk for fall Refuses rehab placement in past Now cooperative with PT/OT Discussed in detail with patient and significant other regarding risks of fall and other complications as she has been not able to manage at home herself Off note: Discusses with her friend about having alcohol in lesser quantities once she gets discharged Appreciate Psychiatry Input Patient is not safe to be discharged home as patient is physically decompensated and as per Psych: "The primary team is recommending inpatient rehabilitation, and at this time, the patient lacks capacity to refuse this recommendation, as she is unable to demonstrate an understanding of the risks of refusing the recommended treatment or to reason about appropriate treatment options. An alternate decision maker should be assigned for placement purposes. " Will discharge to [facility] today Hypertension: Stable Continue current meds Tobacco/alcohol abuse: Continue alcohol withdrawal protocol Banana bag Nicotine patch Fibromyalgia: Stable Denies any pain now Mildly elevated D-dimer: V/Q scan:Low probability of pulmonary embolus Venous Doppler: No DVT Hypothyroidism: Continue Levothyroxine DVT Px: Lovenox subQ. Code Status: Full code Disposition: Monitor in tele PT/OT recommends Rehab Discharge to [facility] Total time spent on discharge = 40 minutes This includes examination of the patient, discharge planning, medication reconciliation, and communication with other providers. Discharge Instructions Date of Service Jan 17, 2017. Admission Reason for Admission: Right Sided Weakness Discharge Discharge Diagnosis / Problem: Left sided extremities numbness,Stroke with right Hemiplegia Discharge Goals Goal(s): Prevent Disease Progression Activity Recommendations Activity Level: Assistance Required Therapies: Physical Therapy, Occupational Therapy, Speech Therapy . Additional Information Patient informed of condition: Yes Advance Directives: No DNR: No Level of Care: Acute Rehab Communicable Disease: No Prognosis: Stable Oxygen at (LPM): 2 liters/min via NC as needed Sams Catheter: Yes (Try to discontinue in 3-5 days) Instructions / Follow-Up Instructions / Follow-Up Please make an appointment with your PCP in 1 week Current Hospital Diet Patient's current hospital diet: Regular Diet Discharge Diet Recommended Diet: Regular Diet Pending Studies Studies pending at discharge: no Physician Orders On Transfer Additional Orders: Please consider Lovenox or other form of Pharmacologic anticoagulation.Was on Lovenox 40mg SQ daily in hospital. POLST Discussion: Not Applicable Laboratory Results Lipid Panel Test 01/10/17 09:28 Range/Units Triglycerides Level 59 0-150 mg/dl Cholesterol Level 178 0-200 mg/dl HDL Cholesterol 71 mg/dl Cholesterol/HDL Ratio 2.5 LDL Cholesterol, Calculated 95 mg/dl Medical Emergencies . Who to Call and When: Medical Emergencies: If at any time you feel your situation is an emergency, please call 911 immediately. . Non-Emergent Contact Non-Emergency issues call your: Primary Care Provider . Past History Medical & Surgical History: (1) Asthma (2) Anxiety (3) Encephalopathy (4) GI bleed (5) Right sided weakness (6) Left sided numbness (7) Seizure disorder (8) CVA (cerebral vascular accident) . "Provider Documentation" section prepared by Sergey Cho. . Core Measure Problem Core Measures: None <Electronically signed by Sergey Cho M.D.> Signed: 01/17/17 5254 Additional Copies To Manuel Saenz M.D.
== END 2017-01-17 19:56 | DRG 74 ==
LOC: C.EDB 14:31 → C.MED 23:53 → ENRESERV 01-09 00:07 → OBSVTOIN 01-10 08:21
PROVIDERS: ADMIT Internal Medicine; ATTEND Internal Medicine
DX: G62.1 Alcoholic polyneuropathy (principal); I69.351 Hemiplegia and hemiparesis following cerebral infarction affecting right dominant side; I69.320 Aphasia following cerebral infarction; R29.6 Repeated falls; I10 Essential (primary) hypertension; F17.200 Nicotine dependence, unspecified, uncomplicated; F10.20 Alcohol dependence, uncomplicated; F19.21 Other psychoactive substance dependence, in remission; M79.7 Fibromyalgia; R79.1 Abnormal coagulation profile; E03.9 Hypothyroidism, unspecified; R07.9 Chest pain, unspecified; R06.02 Shortness of breath; G40.909 Epilepsy, unspecified, not intractable, without status epilepticus; J45.909 Unspecified asthma, uncomplicated; F41.9 Anxiety disorder, unspecified; F39 Unspecified mood [affective] disorder; Z95.2 Presence of prosthetic heart valve; Z79.3 Long term (current) use of hormonal contraceptives; Z79.82 Long term (current) use of aspirin; Z79.899 Other long term (current) drug therapy

== ENCOUNTER → 2017-07-09 | Outpatient (CLI) | payer OTHER ==
[~2017-07-09] MED LIST changes: +ALBU18002 INH; -ALBU1AER9 INH; +CLR10 PO; +CYM/30 PO; +DIPH25CA65 PO; +DOCU-94 PO; +FOLI1TAB8 PO; -GABA-112 PO; -LANS30CA12 PO; +LEVE500T13 PO; +MELATAB2 PO; +NICO21DI4 TD; +NORE0.352 PO; +NRN100 PO; -POTA-331 PO; +POTA10CA28 PO; +PRLSR20 PO; +PROM25TA9 PO; +QUET1TAB30 PO; -QUET1TAB34 PO; -SRQ25 PO; +THM50 PO; -TIZA1CAP3 PO; +VNTHFA/IN INH; -ZNF/4 PO; -ZNTUNK PO
== END | disposition home or self-care (01) ==
LOC: C.PAPS 11:01
PROVIDERS: ATTEND Physician Assistant
DX: Z12.4 Encounter for screening for malignant neoplasm of cervix (principal)

== ENCOUNTER → 2017-08-08 | Outpatient (CLI) | payer OTHER | END | disposition home or self-care (01) | LOC: C.LABSPEC 14:09 | PROVIDERS: ATTEND Physician Assistant | DX: N89.8 Other specified noninflammatory disorders of vagina (principal) ==

== ENCOUNTER 2017-10-17 12:50 | Emergency (ER) | payer OTHER ==
[2017-10-17 13:08] VITALS: TEMP 36.8; Ht 160 cm
--- NOTE | 2017-10-17 13:25 | EMERGENCY ROOM VISIT NOTE ---
History Report prepared by Deandre: Vivek Thomas Under the Supervision of: Dr. Ilir Berry M.D. First contact with patient: 13:21 Chief Complaint: VOMITING Stated Complaint: THROWING UP SINCE YESTERDAY - TSS SYMPTOMS History of Present Illness The patient is a 27 year old female who presents to the Emergency Room with complaints of constant vomiting beginning five days ago. The patient states she is also experiencing pain with urination. No coffee-ground emesis, bilious vomiting, hematemesis. No melena or hematochezia. She reports she has a history of a stroke four years ago. The patient denies fevers. Source of History: patient Onset: 5 days ago Position: abdomen (lower) Timing: constant Associated Symptoms: + urinary symptoms (pain with urination), No fevers Review of Systems See HPI for pertinent positives and negatives. A total of ten systems were reviewed and were otherwise negative. Past Medical & Surgical Medical Problems: (1) Anxiety (2) Asthma (3) CVA (cerebral vascular accident) (4) Left sided numbness (5) Right sided weakness (6) Seizure disorder Family History Unknown Social History Smoking Status: Current Every Day Smoker Alcohol Use: occasionally Drug Use: cocaine, heroin, marijuana Marital Status: single Housing Status: lives with roommate Occupation Status: unemployed Current/Historical Medications Scheduled Albuterol Hfa (Ventolin Hfa), 2-4 PUFFS INH Q6H Aspirin (Aspirin Ec), 81 MG PO DAILY Baclofen (Baclofen), 10 MG PO UD Buspirone Hcl (Buspirone Hcl), 15 MG PO TID Fluticasone Prop/Salmeterol (Advair Diskus 500/50 60 Dose), 1 PUFF INH BID Folic Acid (Folvite), 1 MG PO DAILY Gabapentin (Neurontin), 100 MG PO BID Levetiracetam (Keppra), 500 MG PO BID Levothyroxine Sodium (Synthroid), 100 MCG PO DAILY Loratadine (Claritin), 10 MG PO DAILY Melatonin (Melatonin Maximum Strengt), 1 TAB PO HS Metoprolol Tartrate (Lopressor) (Lopressor), 25 MG PO BID Montelukast Sodium (Singulair), 10 MG PO HS Nicotine (Nicoderm Cq), 1 PATCH TD QAM Norethindrone (Contraceptive) (Addie-Be), 1 TAB PO DAILY Omeprazole (Prilosec), 20 MG PO DAILY Polyethylene Glycol 3350 (Miralax), 17 GM PO DAILY Potassium Chloride (Micro-K Ext Rel), 20 MEQ PO BID Quetiapine Fumarate (Seroquel), 50 MG PO HS Tamsulosin Hcl (Flomax), 0.4 MG PO DAILY Thiamine HCl (Vitamin B-1), 50 MG PO DAILY Scheduled PRN Albuterol Sulfate (Proair Respiclick), 2 PUFFS INH Q6H PRN for Shortness of Breath Diphenhydramine Hcl (Benadryl Allergy), 1 CAP PO HS PRN for Itching Docusate Sodium (Colace), 1 CAP PO BID PRN for Constipation Ondansetron Hcl (Zofran), 4 MG PO Q8 PRN for Nausea Promethazine (Phenergan ), 12.5 MG PO Q4H PRN for Nausea Allergies Coded Allergies: No Known Allergies (Unverified , NONE, 10/17/17) Physical Exam Vital Signs Date Time Temp Pulse Resp B/P (MAP) Pulse Ox O2 Delivery O2 Flow Rate FiO2 10/17/17 16:06 100/60 10/17/17 15:08 68 18 94/59 99 Room Air 10/17/17 14:35 69 10/17/17 14:30 67 20 98/61 96 Room Air 10/17/17 13:08 36.8 78 20 90/61 97 Room Air Physical Exam Physical Exam GENERAL: She is oriented to person, place, and time. She appears well- developed and well-nourished. She does not appear distressed. ____ HENT: Exam performed. Head: Normocephalic and atraumatic. Right Ear: External ear normal. No mastoid tenderness. Left Ear: External ear normal. No mastoid tenderness. Mouth/Throat: The oropharynx is clear and moist. No trismus in the jaw. No dental abscesses or uvula swelling. No oropharyngeal exudate or tonsillar abscesses. ____ EYES: Conjunctivae and EOM are normal. Pupils are equal, round, and reactive to light. Right eye exhibits no discharge. Left eye exhibits no discharge. No scleral icterus. ____ NECK: Normal range of motion. Neck supple. No JVD present. No spinous process tenderness present. No carotid bruit present. No rigidity. No tracheal deviation and normal range of motion present. No Brudzinski's sign and no Kernig 's sign noted. ____ CV: Normal rate, regular rhythm, normal heart sounds and intact distal pulses. There is no peripheral edema. Palpable radial pulses bue. She has mild arrhythmia which is baseline per the patient.____ PULM/CHEST: Effort normal and breath sounds normal. No respiratory distress. No stridor. She has no wheezes. She has no rales. Chest Wall: She exhibits no tenderness. ____ ABD: The abdomen is soft. Bowel sounds are normal. She has no distension. No mass is present. There is no tenderness. There is no rebound, no guarding, no Gutierrez's sign and no tenderness at McBurney's point. Rovsig negative MUSC/SKEL: Normal range of motion. There is no peripheral edema, tenderness or deformity. LYMPH: No cervical adenopathy. ____ NEURO: She is alert and oriented by 3. She has mild facial droop which is baseline per the patient. She ambulated without difficult. Strength is 4/5 in the bilateral lower and upper extremities.____ SKIN: Skin is warm and dry. She is not diaphoretic. ____ PSYCH: She has a normal mood and affect. Her behavior is normal. Judgment and thought content normal. ____ Medical Decision & Procedures Laboratory Results 10/17/17 13:57 Red Blood Count 4.39, Mean Corpuscular Volume 87.9, Mean Corpuscular Hemoglobin 29.6, Mean Corpuscular Hemoglobin Concent 33.7, Mean Platelet Volume 9.6, Neutrophils (%) (Auto) 66.8, Lymphocytes (%) (Auto) 20.9, Monocytes (%) (Auto) 7.6, Eosinophils (%) (Auto) 4.1, Basophils (%) (Auto) 0.3, Neutrophils # (Auto) 2.11, Lymphocytes # (Auto) 0.66, Monocytes # (Auto) 0.24, Eosinophils # (Auto) 0.13, Basophils # (Auto) 0.01 10/17/17 13:57 Test 10/17/17 13:57 10/17/17 14:10 White Blood Count 3.16 K/uL (4.8-10.8) Red Blood Count 4.39 M/uL (4.2-5.4) Hemoglobin 13.0 g/dL (12.0-16.0) Hematocrit 38.6 % (37-47) Mean Corpuscular Volume 87.9 fL (80-100) Mean Corpuscular Hemoglobin 29.6 pg (25-34) Mean Corpuscular Hemoglobin Concent 33.7 g/dl (32-36) Platelet Count 181 K/uL (130-400) Mean Platelet Volume 9.6 fL (7.4-10.4) Neutrophils (%) (Auto) 66.8 % Lymphocytes (%) (Auto) 20.9 % Monocytes (%) (Auto) 7.6 % Eosinophils (%) (Auto) 4.1 % Basophils (%) (Auto) 0.3 % Neutrophils # (Auto) 2.11 K/uL (1.4-6.5) Lymphocytes # (Auto) 0.66 K/uL (1.2-3.4) Monocytes # (Auto) 0.24 K/uL (0.11-0.59) Eosinophils # (Auto) 0.13 K/uL (0-0.5) Basophils # (Auto) 0.01 K/uL (0-0.2) RDW Standard Deviation 46.0 fL (36.4-46.3) RDW Coefficient of Variation 14.2 % (11.5-14.5) Immature Granulocyte % (Auto) 0.3 % Immature Granulocyte # (Auto) 0.01 K/uL (0.00-0.02) Anion Gap 7.0 mmol/L (3-11) Estimated GFR () 141.2 Estimated GFR (Non- 121.9 BUN/Creatinine Ratio 19.9 (10-20) Lactic Acid Level 0.7 mmol/L (0.4-2.0) Calcium Level 8.1 mg/dl (8.5-10.1) Urine Color ORANGE Urine Appearance CLOUDY (CLEAR) Urine pH 5.5 (4.5-7.5) Urine Specific [place] 1.038 (1.000-1.030) Urine Protein 1+ (NEG) Urine Glucose (UA) NEG (NEG) Urine Ketones 2+ (NEG) Urine Occult Blood 3+ (NEG) Urine Nitrite NEG (NEG) Urine Bilirubin NEG (NEG) Urine Urobilinogen NEG (NEG) Urine Leukocyte Esterase SMALL (NEG) Urine WBC (Auto) 10-30 /hpf (0-5) Urine RBC (Auto) >30 /hpf (0-4) Urine Hyaline Casts (Auto) 1-5 /lpf (0-5) Urine Epithelial Cells (Auto) >30 /lpf (0-5) Urine Bacteria (Auto) NEG (NEG) Urine Pathogenic Casts /lpf (0) Laboratory results reviewed by me Medications Administered Medications (Trade) Dose Ordered Sig/Taylor Route Start Time Stop Time Status Last Admin Dose Admin Sodium Chloride 1,000 ml @ 999 mls/hr Q1H1M STAT IV 10/17/17 13:26 10/17/17 14:26 DC 10/17/17 14:13 999 MLS/HR ED Course 1322: The patient was evaluated in room C09. A complete history and physical exam was performed. 1326: Ordered Sodium Chloride 1000 ml @ 999 mls/hr IV 1431: I reevaluated the patient. The caregiver states the patient was vomiting this morning. 1531: I reevaluated the patient. She is doing fine, tolerating PO, and up and walking. 1613: Vital signs stable. Status post fluids, the patient states she feels better. No vomiting in the emergency department. Urine is contaminated, no evidence of infection at this point. Culture pending. Labs show no leukocytosis, lactic acid within normal limits. Renal profile shows hypokalemia at 3.3, potassium replaced in the emergency department. Patient will be discharged and follow-up PCP. Tolerating p.o. Family members at bedside agree with the plan DISCHARGE - Plan of care discussed with family and questions answered. The family was given both verbal and printed discharge instructions. The family verbalized understanding and ability to comply. The family is to seek outpatient follow up as noted in the discharge instructions. The family verbalized understanding and ability to comply. The family is discharged in stable condition. The family was instructed to return for worsening symptoms. Medical Decision Vital signs stable. Status post fluids, the patient states she feels better. No vomiting in the emergency department. Urine is contaminated, no evidence of infection at this point. Culture pending. Labs show no leukocytosis, lactic acid within normal limits. Renal profile shows hypokalemia at 3.3, potassium replaced in the emergency department. Patient will be discharged and follow-up PCP. Tolerating p.o. Family members at bedside agree with the plan DISCHARGE - Plan of care discussed with family and questions answered. The family was given both verbal and printed discharge instructions. The family verbalized understanding and ability to comply. The family is to seek outpatient follow up as noted in the discharge instructions. The family verbalized understanding and ability to comply. The family is discharged in stable condition. The family was instructed to return for worsening symptoms. Medication Reconcilliation Current Medication List: was personally reviewed by me Blood Pressure Screening Patient's blood pressure: Low blood pressure Blood pressure disposition: Elevated BP felt to be situational Impression Primary Impression: Nausea and vomiting Additional Impression: Hypokalemia Scribe Attestation The scribe's documentation has been prepared under my direction and personally reviewed by me in its entirety. I confirm that the note above accurately reflects all work, treatment, procedures, and medical decision making performed by me. The chart was completed utilizing [employer] Speech voice recognition software. Grammatical errors, random word insertions, pronoun errors, and incomplete sentences are an occasional consequence of this system due to software limitations, ambient noise, and hardware issues. Any formal questions or concerns about the content, text, or information contained within the body of this dictation should be directly addressed to the physician for clarification. Departure Information Referrals No Doctor, Assigned (PCP) Patient Instructions My [facility] Health Problem Qualifiers Primary Impression: Nausea and vomiting Vomiting type: unspecified Vomiting Intractability: non-intractable Qualified Codes: R11.2 - Nausea with vomiting, unspecified
[2017-10-17] MEDS ORDERED: SODIUM CHLORIDE 0.9% 1000ML 1,000 ML IV STA ×2 (13:26→15:36)
[2017-10-17 14:15] LABS: BASO % 0.3 %; BASO ABS # 0.01 K/uL (0-0.2); EOS % 4.1 %; EOS ABS # 0.13 K/uL (0-0.5); HEMATOCRIT 38.6 % (37-47); IG# 0.01 K/uL (0.00-0.02); LYMPH % 20.9 %; LYMPH ABS # 0.66 K/uL (1.2-3.4); MEAN CELL VOLUME 87.9 fL (80-100); MEAN CORPUSCULAR HEMOGLOBIN 29.6 pg (25-34); MEAN CORPUSCULAR HGB CONC 33.7 g/dl (32-36); MEAN PLATELET VOLUME 9.6 fL (7.4-10.4); MONO % 7.6 %; MONO ABS # 0.24 K/uL (0.11-0.59); NEUT % 66.8 %; NEUT ABS # 2.11 K/uL (1.4-6.5); PLATELET COUNT 181 K/uL (130-400); RED CELL DISTRIBUTION WIDTH CV 14.2 % (11.5-14.5); WHITE BLOOD COUNT 3.16 K/uL (4.8-10.8)
[2017-10-17 14:32] LABS: BLOOD UREA NITROGEN 12 mg/dl (7-18); CALCIUM 8.1 mg/dl (8.5-10.1); CARBON DIOXIDE 20 mmol/L (21-32); CREATININE 0.62 mg/dl (0.60-1.20); GLUCOSE 103 mg/dl (70-99); POTASSIUM 3.3 mmol/L (3.5-5.1); SODIUM 142 mmol/L (136-145)
[2017-10-17] MEDS ORDERED: PROM12.57 PO (14:36)
[2017-10-17] MEDS ORDERED: GABA-112 PO (14:36)
[2017-10-17] MEDS ORDERED: LEVO100T PO (14:36)
[2017-10-17] MEDS ORDERED: QUET1TAB32 PO (14:36)
[2017-10-17 15:08] VITALS: O2SAT 99
[2017-10-17 16:06] VITALS: PULSE 65
[2017-10-17] MEDS ORDERED: POTASSIUM CHLORIDE 10 MEQ TABCR PO STA (16:09)
== END 2017-10-17 16:25 | disposition home or self-care (01) ==
LOC: C.EDB 12:51 → C.EDC 16:25
DX: R11.2 Nausea with vomiting, unspecified (principal); E87.6 Hypokalemia; J45.909 Unspecified asthma, uncomplicated; Z86.73 Personal history of transient ischemic attack (TIA), and cerebral infarction without residual deficits; F17.200 Nicotine dependence, unspecified, uncomplicated; F11.90 Opioid use, unspecified, uncomplicated; F12.90 Cannabis use, unspecified, uncomplicated; Z79.82 Long term (current) use of aspirin